=== PATIENT | female | born 1985 | race Caucasian/White ===

== ENCOUNTER 2020-09-28 20:34 | Emergency (ER) | payer MEDICAID, SELFPAY ==
[2020-09-28 20:48] VITALS: BP 171/100; PULSE 91; RESP 17; TEMP 36.8; O2SAT 96; BMI 42.9
--- NOTE | 2020-09-28 20:49 | XRR_ITS ---
PROCEDURE INFORMATION: Exam: XR Chest Exam date and time: 09/28/2020 8:49 PM Age: 35 years old Clinical indication: Sternal or substernal pain; Additional info: Cp TECHNIQUE: Imaging protocol: XR of the chest. Views: 1 view. COMPARISON: No relevant prior studies available. FINDINGS: Lungs: Unremarkable. No consolidation. Pleural spaces: Unremarkable. No pleural effusion. No pneumothorax. Heart/Mediastinum: Unremarkable. No cardiomegaly. Bones/joints: Unremarkable. XR/XR chest 1V portable [id number] IMPRESSION: No acute findings.
--- NOTE | 2020-09-28 20:49 | ECG_ITS ---
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 Measurements Intervals [place] Rate: 72 P: 65 ME: 140 QRS: 14 QRSD: 92 T: 38 QT: 411 QTc: 452 Interpretive Statements SINUS RHYTHM WITH SINUS ARRHYTHMIA No previous ECG available for comparison Electronically Signed On 09-29-2020 19:27:13 CDT by Ann Pope M.D. [id number]
--- NOTE | 2020-09-28 21:15 | W.ED.HA ---
HPI - Headache General: Chief Complaint: Headache Stated Complaint: H/A, DIFF BREATHING, CP, DIZZY, COVID VACC 2 DAYS Time Seen by Provider: 09/28/20 20:48 Source: patient Mode of arrival: ambulatory Limitations: no limitations History of Present Illness: HPI Narrative: 35-year-old female states she had a migraine headache of last 2 days. States she has history of migraines. She states she is also having chest pain. States that sharp in nature and also has a severe sunburn from mowing yesterday. She is unsure if the pain is from her sunburn but is over sunburn and worse with touch. Denies any Associated symptoms: Reports chest pain; Deny fever(s), nausea, rash or vomiting Review of Systems Const: Denies: fever(s), chills, body aches or change in appetite Eyes: Denies: blurry vision or eye discomfort ENMT: Denies: throat pain or dental pain Card: Reports: chest pain Resp: Denies: dyspnea GI: Denies: abdominal pain, nausea, vomiting or diarrhea : Denies: dysuria Musc: Denies: neck pain or back pain Skin/Breast: Denies: rash Neuro: Reports: headache(s) Psych: Denies: depression Shar/Lymph: Denies: easy bruising All/Imm: Denies: urticaria Physical Exam Const: COMMON NORMALS: no acute distress, patient oriented x3 and healthy appearing HENMT: COMMON NORMALS: normocephalic and atraumatic HEAD & SCALP: normocephalic and atraumatic Eye: COMMON NORMALS: Equal, round and reactive pupils present and EOMs intact bilaterally PUPIL: Yes Equal, round and reactive pupils present Neck/C-Spine: COMMON NORMALS: full ROM and supple Chest: COMMONS NORMALS: normal inspection of the chest and normal palpation of entire chest wall Resp: COMMON NORMALS: normal respiratory effort, No retractions, No use of accessory muscles and clear to auscultation bilaterally AUSCULTATION: clear to auscultation bilaterally Cardio: COMMON NORMALS: regular rate, regular rhythm and No murmurs present (Cardio) RATE: regular rate RHYTHM: regular rhythm GI: COMMON NORMALS: Normal to inspection, nondistended, normoactive bowel sounds present, Soft to palpation, non-tender and no masses PALPATION: Yes Soft to palpation Extremity: COMMON NORMALS: normal to inspection and full ROM Neuro: COMMON NORMALS: patient oriented x3, moves all extremities and no focal motor deficits Psych: COMMON NORMALS: mental status grossly normal, Normal thought process present and cooperative THOUGHT PROCESS: Normal thought process present Skin: COMMON NORMALS: no wounds NARRATIVE SKIN EXAM: sunburn to chest shoulders and arms Course Vital Signs: Vital signs: Vital Signs Temperature 98.3 F 09/28/20 20:48 Pulse Rate 98 09/28/20 23:34 Respiratory Rate 18 09/28/20 23:34 Blood Pressure 134/113 09/28/20 23:34 Pulse Oximetry 97 09/28/20 23:34 MDM - Headache MDM Narrative: Medical decision making narrative: Maribell presents here with a headache likely migraine headache. She also has a sunburn and chest pain. CT shows no pulmonary embolism and troponins are negative. She feels much improved after Reglan and Benadryl and her headache is resolved. She is stable for discharge is return if worsening. Lab Data: Labs: Lab Results 09/28/20 09/28/20 09/28/20 Range/Units 21:10 21:10 21:10 WBC 6.2 (4.0-10.0) 10^3/ uL RBC 4.97 (4.1-5.3) 10^6/u L Hgb 14.0 (11.5-15.3) g/dL Hct 43.8 (37.0-47.0) % MCV 88.1 (81-99) fL MCH 28.2 (28.0-34.0) pg MCHC 32.0 (30.0-36.0) g/dL RDW 13.5 (12.1-15.1) % Plt Count 287 (130-400) 10^3/c mm MPV 9.6 (7.4-10.4) fL Neut % (Auto) 62.7 % Lymph % (Auto) 25.7 % Allen % (Auto) 9.7 % Eos % (Auto) 1.6 % Baso % (Auto) 0.3 % Neut # (Auto) 3.88 (1.8-7.7) 10^3/u L Lymph # (Auto) 1.6 (0.8-4.8) 10^3/u L Allen # (Auto) 0.6 (0.2-0.9) 10^3/u L Eos # (Auto) 0.1 (0.0-0.8) 10^3/u L Baso # (Auto) 0.0 (0.0-0.1) 10^3/u L Nucleated RBC % (a uto) 0 % Nucleated RBCs # 0.0 /100WBC D-Dimer 0.60 H (0-0.59) ug/mIFE U Sodium 137 (136-145) mmol/L Potassium 3.7 (3.5-5.1) mmol/L Chloride 102 (98-107) mmol/L Carbon Dioxide 27 (22-29) mmol/L Anion Gap 11.7 (5-19) BUN 15 (6-20) mg/dL Creatinine 0.7 (0.5-0.9) mg/dL GFR Calculation 94.2 (90-130) mL/min Glucose 95 (65-115) mg/dL Calculated Osmolal ity 285 (285-295) mOsm/k g Calcium 8.6 (8.5-10.5) mg/dL Total Bilirubin 0.2 (0.15-1.2) mg/dL AST 11 (0-32) U/L ALT 10 (0-33) U/L Alkaline Phosphata se 123 H (35-105) IU/L Troponin T Baselin e (0-10) ng/L Troponin T 120 Min [place] (0-10) ng/L Delta Troponin T (0-10) ABS# NT-Pro-B Natriuret Pep 251 H (0-125) pg/mL Total Protein 6.3 L (6.6-8.7) g/dL Albumin 3.8 (3.5-5.2) g/dL Globulin 2.5 (1.3-4.6) g/dL 09/28/20 09/28/20 Range/Units 21:10 23:00 WBC (4.0-10.0) 10^3/ uL RBC (4.1-5.3) 10^6/u L Hgb (11.5-15.3) g/dL Hct (37.0-47.0) % MCV (81-99) fL MCH (28.0-34.0) pg MCHC (30.0-36.0) g/dL RDW (12.1-15.1) % Plt Count (130-400) 10^3/c mm MPV (7.4-10.4) fL Neut % (Auto) % Lymph % (Auto) % Allen % (Auto) % Eos % (Auto) % Baso % (Auto) % Neut # (Auto) (1.8-7.7) 10^3/u L Lymph # (Auto) (0.8-4.8) 10^3/u L Allen # (Auto) (0.2-0.9) 10^3/u L Eos # (Auto) (0.0-0.8) 10^3/u L Baso # (Auto) (0.0-0.1) 10^3/u L Nucleated RBC % (a uto) % Nucleated RBCs # /100WBC D-Dimer (0-0.59) ug/mIFE U Sodium (136-145) mmol/L Potassium (3.5-5.1) mmol/L Chloride (98-107) mmol/L Carbon Dioxide (22-29) mmol/L Anion Gap (5-19) BUN (6-20) mg/dL Creatinine (0.5-0.9) mg/dL GFR Calculation (90-130) mL/min Glucose (65-115) mg/dL Calculated Osmolal ity (285-295) mOsm/k g Calcium (8.5-10.5) mg/dL Total Bilirubin (0.15-1.2) mg/dL AST (0-32) U/L ALT (0-33) U/L Alkaline Phosphata se (35-105) IU/L Troponin T Baselin e 11 H (0-10) ng/L Troponin T 120 Min [place] 11.13 H (0-10) ng/L Delta Troponin T 0.13 (0-10) ABS# NT-Pro-B Natriuret Pep (0-125) pg/mL Total Protein (6.6-8.7) g/dL Albumin (3.5-5.2) g/dL Globulin (1.3-4.6) g/dL Imaging Data^: CXR: Attestation: I personally reviewed and interpreted this imaging study as follows: Radiologist's impression: [facility] [address] XRay Report Signed Patient: Maribell Duncan Unit #: [id number] : 1985 Age/Sex: 35 / F ADM Date: 09/28/20 Loc: ER Room/Bed: Attending Dr: Ordering Provider/Ordering MD: Jovita Ocasio MD Date of Service: 09/28/20 Procedure(s): XR chest 1V portable [id number] Accession Number(s): [id number] Report Number: [id number] PROCEDURE INFORMATION: Exam: XR Chest Exam date and time: 09/28/2020 8:49 PM Age: 35 years old Clinical indication: Sternal or substernal pain; Additional info: Cp TECHNIQUE: Imaging protocol: XR of the chest. Views: 1 view. COMPARISON: No relevant prior studies available. FINDINGS: Lungs: Unremarkable. No consolidation. Pleural spaces: Unremarkable. No pleural effusion. No pneumothorax. Heart/Mediastinum: Unremarkable. No cardiomegaly. Bones/joints: Unremarkable. XR/XR chest 1V portable [id number] IMPRESSION: No acute findings. Dictated By: Bruce Landa MD Signed By: Bruce Landa MD Signed Date/Time: 09/28/202126 DD/ 25 EKG Data^: EKG 1: Attestation: I personally reviewed and interpreted this EKG as follows: EKG interpretation date: 09/28/20 EKG interpretation time: 21:33 Interpretation: nsr hr [address] or t wave abnormalities qrs 92 qtc 436 Discharge Plan Discharge Patient Disposition: Home Clinical Impression: Sunburn Headache Qualifiers: Headache type: unspecified Headache chronicity pattern: unspecified pattern Intractability: not intractable Qualified Code(s): R51.9 - Headache, unspecified Chest pain Qualifiers: Chest pain type: unspecified Qualified Code(s): R07.9 - Chest pain, unspecified Condition: Stable Prescriptions: No Action omeprazole 40 mg capsule,delayed release(DR/EC) 0 mg PO DAILY RF: 0 wejjqgjylq-[id number]-hlkx 50-325-40 mg tablet 1 tab PO Q4H PRN (Reason: Migraine Headache) RF: 0 gabapentin 300 mg capsule 300 mg PO TID RF: 0 Discharge Orders: Discharge ED (Routine); Ordered 09/28/20 Ordered By: Jovita Ocasio Referrals: Mikey Morrow MD [Primary Care Provider] - 1-3 days Discharge Diet: Advance as tolerated Discharge Activity: Resume usual activity Patient Instructions: Headache, Chest Pain (ED) Coding Level of Care Code ED Rn Assessment for Chg Fwd Exam Comprehensive
[2020-09-28 21:16] LABS: Basophils % 0.3 %; Eosinophils # 0.1 10^3/uL (0.0-0.8); Eosinophils % 1.6 %; Hematocrit 43.8 % (37.0-47.0); Lymphocytes # 1.6 10^3/uL (0.8-4.8); Lymphocytes % 25.7 %; Mean Corpuscular Hemoglobin 28.2 pg (28.0-34.0); Mean Corpuscular Volume 88.1 fL (81-99); Mean Platelet Volume 9.6 fL (7.4-10.4); Monocytes # 0.6 10^3/uL (0.2-0.9); Monocytes % 9.7 %; Neutrophils # 3.88 10^3/uL (1.8-7.7); Neutrophils % 62.7 %; Nucleated Red Blood Cells % 0 %; Platelet Count 287 10^3/cmm (130-400); Red Blood Count 4.97 10^6/uL (4.1-5.3); Red Cell Distribution Width 13.5 % (12.1-15.1); White Blood Count 6.2 10^3/uL (4.0-10.0)
[2020-09-28] MEDS: diphenhydrAMINE 50 mg/mL SDV 1mL IVP (21:21)
[2020-09-28] MEDS: metoclopramide 5 mg/mL SDV 2 mL 10 MG IVP (21:22)
[2020-09-28 21:28] VITALS: BP 173/113; PULSE 83; RESP 18; O2SAT 98
[2020-09-28 21:33] LABS: Troponin(5th) Baseline 11 ng/L (0-10)
--- NOTE | 2020-09-28 21:35 | CTR_ITS ---
PROCEDURE INFORMATION: Exam: CTA Chest With Contrast Exam date and time: 09/28/2020 9:35 PM Age: 35 years old Clinical indication: Abnormal findings; Abnormal diagnostic tests; Elevated d-dimer; Cough and shortness of breath; Patient HX: Cough/sob. Elevated ddimer. TECHNIQUE: Imaging protocol: Computed tomographic angiography of the chest with contrast. 3D rendering (Not supervised by radiologist): MIP and/or 3D reconstructed images were created by the technologist. Radiation optimization: All CT scans at this facility use at least one of these dose optimization techniques: automated exposure control; mA and/or kV adjustment per patient size (includes targeted exams where dose is matched to clinical indication); or iterative reconstruction. Contrast material: OMNI 350; Contrast volume: 73 ml; Contrast route: INTRAVENOUS (IV); COMPARISON: CR (CHEST, ) 09/28/2020 8:49 PM RADIATION DOSE METRICS: Total DLP (mGy-cm): 850.29 FINDINGS: Pulmonary arteries: The pulmonary arteries are adequately opacified for evaluation to the subsegmental level. There is no filling defect to suggest embolism. Aorta: The aorta is unremarkable. There is no aneurysm. Lungs: Lungs are clear. Pleural spaces: There is no pleural effusion or pneumothorax. Heart: Heart size is normal. There is no pericardial effusion. Lymph nodes: There is no mediastinal or hilar lymphadenopathy. Bones/joints: Bones are unremarkable. Soft tissues: The extrathoracic soft tissues are unremarkable. Other findings: Visible structures in the upper abdomen are unremarkable. CT/CT angio chest PE protcl [id number] IMPRESSION: No pulmonary embolism. Radiation Dose CTDIVOL = (mGy): DLP = 850.29 (mGy-cm)
[2020-09-28 21:55] LABS: Alanine Aminotransferase 10 U/L (0-33); Albumin Level 3.8 g/dL (3.5-5.2); Alkaline Phosphatase 123 IU/L (35-105); Anion Gap 11.7 (5-19); Aspartate Amino Transferase 11 U/L (0-32); Blood Urea Nitrogen 15 mg/dL (6-20); Calcium 8.6 mg/dL (8.5-10.5); Carbon Dioxide 27 mmol/L (22-29); Chloride 102 mmol/L (98-107); Globulin 2.5 g/dL (1.3-4.6); Glomerular Filtration Rate 94.2 mL/min (90-130); Glucose 95 mg/dL (65-115); NT Pro B Type Natriuretic Pept 251 pg/mL (0-125); Osmolality Calculated 285 mOsm/kg (285-295); Potassium 3.7 mmol/L (3.5-5.1); Sodium 137 mmol/L (136-145); Total Bilirubin 0.2 mg/dL (0.15-1.2); Total Protein 6.3 g/dL (6.6-8.7)
[2020-09-28] MEDS: iohexol 350 mg/mL 100 mL Btl IV (22:02)
[2020-09-28 22:21] VITALS: PULSE 86; O2SAT 98
--- NOTE | 2020-09-28 22:49 | ECG_ITS ---
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1985 Requested By: Jovita Ocasio Order Number: [id number] Reading MD: Measurements Intervals [place] Rate: 72 P: 67 VA: 181 QRS: -3 QRSD: 118 T: 40 QT: 431 QTc: 472 Interpretive Statements SINUS RHYTHM WITH SINUS ARRHYTHMIA LOW QRS VOLTAGE IN PRECORDIAL LEADS [QRS DEFLECTION < 1.0 mV IN CHEST LEADS] POSSIBLE RIGHT VENTRICULAR CONDUCTION DELAY [RSR (QR) IN V1/V2] Compared to ECG 08/27/2020 17:03:45 Low QRS voltage now present Ventricular premature complex(es) no longer present [id number]
[2020-09-28 23:26] LABS: Troponin 5 2HR 11.13 ng/L (0-10); Troponin 5 2HR Delta 0.13 ABS# (0-10)
[2020-09-28 23:34] VITALS: BP 134/113; PULSE 98; RESP 18; O2SAT 97
[2020-09-28 23:35] VITALS: BP 134/113; PULSE 89; RESP 18; O2SAT 96
== END 2020-09-28 23:39 | disposition home or self-care (01) ==
PROVIDERS: Emergency Provider Emergency Medicine; PCP Family Medicine
DX: R51.9 Headache, unspecified (principal); R07.9 Chest pain, unspecified; L55.9 Sunburn, unspecified
CPT/HCPCS: 71045; 71275; 80053; 83880; 84484; 85025; 85378; 93005; 96374; 96375; 99284; J1200; J2765; Q9967

== ENCOUNTER 2021-01-10 03:02 | Emergency (ER) | payer MEDICAID, SELFPAY ==
[2021-01-10] VITALS (8 sets, daily range): BP systolic 132–191; BP diastolic 84–120; PULSE 84–98; RESP 18–24; TEMP 36.8; O2SAT 97–99; BMI 39.4
--- NOTE | 2021-01-10 03:16 | CTR_ITS ---
PROCEDURE INFORMATION: Exam: CT Abdomen And Pelvis With Contrast Exam date and time: 01/10/2021 3:16 AM Age: 35 years old Clinical indication: Nausea and vomiting; Abdominal pain; Patient HX: Llq/back pain. N/v. TECHNIQUE: Imaging protocol: Computed tomography of the abdomen and pelvis with contrast. Radiation optimization: All CT scans at this facility use at least one of these dose optimization techniques: automated exposure control; mA and/or kV adjustment per patient size (includes targeted exams where dose is matched to clinical indication); or iterative reconstruction. Contrast material: OMNI 300; Contrast volume: 95 ml; Contrast route: INTRAVENOUS (IV); COMPARISON: CT angio chest PE protcl [id number] 09/28/2020 10:01 PM RADIATION DOSE METRICS: Total DLP (mGy-cm): 1625.18 FINDINGS: Liver: Normal. No mass. Gallbladder and bile ducts: Normal. No calcified stones. No ductal dilation. Pancreas: Normal. No ductal dilation. Spleen: Normal. No splenomegaly. Adrenal glands: Normal. No mass. Kidneys and ureters: 4 mm left ureteral stone at the level of L4-L5 with mild left hydronephrosis. Stomach and bowel: Unremarkable. No obstruction. No mucosal thickening. Appendix: No evidence of appendicitis. Intraperitoneal space: Unremarkable. No free air. No significant fluid collection. Vasculature: Unremarkable. No abdominal aortic aneurysm. Lymph nodes: Unremarkable. No enlarged lymph nodes. Urinary bladder: Unremarkable as visualized. Reproductive: Unremarkable as visualized. Bones/joints: Unremarkable. No acute fracture. Soft tissues: Unremarkable. CT/CT abdomen pelvis w con* [id number] IMPRESSION: 4 mm left ureteral stone at the level of L4-L5 with mild left hydronephrosis. Radiation Dose CTDIVOL = (mGy): DLP = 1625.18 (mGy-cm)
--- NOTE | 2021-01-10 03:28 | ED_ITS ---
Documented by User: Jovita Ocasio MD 01/10/21 19:00 HPI - Abdominal Pain General: Chief Complaint: Abdominal Pain Stated Complaint: adb pain, back paib Time Seen by Provider: 01/10/21 03:06 Source: patient Mode of arrival: ambulatory Limitations: no limitations History of Present Illness: HPI narrative: 35-year-old female who states she had sudden onset of left lower abdominal pain roughly 4 hours ago. States the pain is sharp in nature rates it a 9 out of 10 currently she has had some nausea the pain no vomiting. States she just recently got off her menstruation. She does have a history of ectopic but does not believe she is . No history of kidney stones. Denies any fevers or diarrhea. Denies any worsening improving factors. Associated Symptoms: Denies chills, dysuria and fever(s) Review of Systems Const: Denies: fever(s), chills, body aches or change in appetite Eyes: Denies: blurry vision or eye discomfort ENMT: Denies: throat pain or dental pain Card: Denies: chest pain Resp: Denies: dyspnea GI: Reports: abdominal pain : Denies: dysuria Musc: Denies: neck pain or back pain Skin/Breast: Denies: rash Neuro: Denies: headache(s) Psych: Denies: depression Shar/Lymph: Denies: easy bruising All/Imm: Denies: urticaria Physical Exam Const: COMMON NORMALS: no acute distress, patient oriented x3 and healthy appearing HENMT: COMMON NORMALS: normocephalic and atraumatic HEAD & SCALP: normocephalic and atraumatic Eye: COMMON NORMALS: Equal, round and reactive pupils present and EOMs intact bilaterally PUPIL: Yes Equal, round and reactive pupils present Neck/C-Spine: COMMON NORMALS: full ROM and supple Chest: COMMONS NORMALS: normal inspection of the chest and normal palpation of entire chest wall Resp: COMMON NORMALS: normal respiratory effort, No retractions, No use of accessory muscles and clear to auscultation bilaterally AUSCULTATION: clear to auscultation bilaterally Cardio: COMMON NORMALS: regular rate, regular rhythm and No murmurs present (Cardio) RATE: regular rate RHYTHM: regular rhythm GI: COMMON NORMALS: Normal to inspection, nondistended, normoactive bowel sounds present, Soft to palpation and no masses PALPATION: Yes Soft to palpation and Yes Tenderness to palpation present (GI) Details: LLQ Extremity: COMMON NORMALS: normal to inspection and full ROM Neuro: COMMON NORMALS: patient oriented x3, moves all extremities and no focal motor deficits Psych: COMMON NORMALS: mental status grossly normal, Normal thought process present and cooperative THOUGHT PROCESS: Normal thought process present Skin: COMMON NORMALS: no rashes or lesions noted and no wounds GENERAL SKIN EXAM: no rashes or lesions noted Course Vital Signs: Vital signs: Vital Signs Temperature 98.2 F 01/10/21 03:07 Pulse Rate 88 01/10/21 06:36 Respiratory Rate 18 01/10/21 06:36 Blood Pressure 132/84 01/10/21 06:36 Pulse Oximetry 98 01/10/21 06:36 MDM - Abdominal Pain Lab Data: Labs: Lab Results 01/10/21 01/10/21 01/10/21 03:25 03:25 03:34 WBC 9.4 10^3/uL 10^3/ uL (4.0-10.0) RBC 5.04 10^6/uL 10^6 /uL (4.1-5.3) Hgb 14.3 g/dL g/dL (11.5-15.3) Hct 44.1 % % (37.0-47.0) MCV 87.5 fl fl (81-99) MCH 28.4 pg pg (28.0-34.0) MCHC 32.4 g/dL g/dL (30.0-36.0) RDW 12.7 % % (12.1-15.1) Plt Count 323 10^3/cmm 10^3 /cmm (130-400) MPV 9.4 fL fL (7.4-10.4) Neut % (Auto) 60.0 % % Lymph % (Auto) 29.9 % % [place] % (Auto) 8.7 % % Eos % (Auto) 0.7 % % Baso % (Auto) 0.4 % % Neut # (Auto) 5.64 10^3/uL 10^3 /uL (1.8-7.7) Lymph # (Auto) 2.8 10^3/uL 10^3/ uL (0.8-4.8) [place] # (Auto) 0.8 10^3/uL 10^3/ uL (0.2-0.9) Eos # (Auto) 0.1 10^3/uL 10^3/ uL (0.0-0.8) Baso # (Auto) 0.0 10^3/uL 10^3/ uL (0.0-0.1) Nucleated RBC % (a uto) 0 % % Nucleated RBCs # 0.0 /100WBC /100W BC Sodium Potassium Chloride Carbon Dioxide Anion Gap BUN Creatinine GFR Calculation Glucose Calculated Osmolal ity Calcium Total Bilirubin AST ALT Alkaline Phosphata se Total Protein Albumin Globulin Lipase HCG, Qual Negative (Negative) Urine Color Dark yellow (Yellow) Urine Appearance Cloudy (CLEAR) Urine pH 5 (5-7) Ur Specific Gravit y 1.025 (1.005-1.030) Urine Protein Trace (Negative) Urine Glucose (UA) Norm (Normal) Urine Ketones Negative (Negative) Urine Blood 3+ H (Negative) Urine Nitrate Negative (Negative) Urine Bilirubin 1+ H (Negative) Urine Urobilinogen 1 mg/dL H mg/dL (Negative) Ur Leukocyte Analy ase Negative (Negative) Urine RBC Too numerous to c nt /hpf H /hpf (0-2) Urine WBC 0-4 /hpf H /hpf (0-5) Ur Squamous Epith Cells Rare /hpf /hpf (0-5) Amorphous Sediment Not Reportable Urine Bacteria 1+ /hpf H /hpf (NONE) 01/10/21 01/10/21 03:34 03:34 WBC RBC Hgb Hct MCV MCH MCHC RDW Plt Count MPV Neut % (Auto) Lymph % (Auto) [place] % (Auto) Eos % (Auto) Baso % (Auto) Neut # (Auto) Lymph # (Auto) [place] # (Auto) Eos # (Auto) Baso # (Auto) Nucleated RBC % (a uto) Nucleated RBCs # Sodium 139 mmol/L mmol/L (136-145) Potassium 3.6 mmol/L mmol/L (3.5-5.1) Chloride 104 mmol/L mmol/L (98-107) Carbon Dioxide 26 mmol/L mmol/L (22-29) Anion Gap 12.6 (5-19) BUN 19 mg/dL mg/dL (6-20) Creatinine 0.6 mg/dL mg/dL (0.5-0.9) GFR Calculation 112.5 mL/min mL/m in (90-130) Glucose 103 mg/dL mg/dL (65-115) Calculated Osmolal ity 291 mOsm/kg mOsm/ kg (285-295) Calcium 9.1 mg/dL mg/dL (8.5-10.5) Total Bilirubin 0.2 mg/dL mg/dL (0.15-1.2) AST 12 U/L U/L (0-32) ALT 12 U/L U/L (0-33) Alkaline Phosphata se 99 IU/L IU/L (35-105) Total Protein 7.5 g/dL g/dL (6.6-8.7) Albumin 4.0 g/dL g/dL (3.5-5.2) Globulin 3.5 g/dL g/dL (1.3-4.6) Lipase 11 U/L L U/L (13-60) HCG, Qual Negative (Negative) Urine Color Urine Appearance Urine pH Ur Specific Gravit y Urine Protein Urine Glucose (UA) Urine Ketones Urine Blood Urine Nitrate Urine Bilirubin Urine Urobilinogen Ur Leukocyte Analy ase Urine RBC Urine WBC Ur Squamous Epith Cells Amorphous Sediment Urine Bacteria Discharge Plan Discharge Patient Disposition: Home Clinical Impression: Kidney stone Condition: Stable Prescriptions: New hydrocodone-acetaminophen 5-325 mg tablet 1 tab PO Q6H PRN (Reason: pain) Qty: 14 RF: 0 ondansetron 4 mg tablet,disintegrating 4 mg PO Q6H PRN (Reason: nausea and vomiting) Qty: 14 RF: 0 Flomax 0.4 mg capsule 0.4 mg PO DAILY Qty: 5 RF: 0 No Action omeprazole 40 mg capsule,delayed release(DR/EC) 0 mg PO DAILY RF: 0 ifefrnimsg-qpnscjbgbgbbp-jwug 50-325-40 mg tablet 1 tab PO Q4H PRN (Reason: Migraine Headache) RF: 0 gabapentin 300 mg capsule 300 mg PO TID RF: 0 Discharge Orders: Discharge ED (Routine); Ordered 01/10/21 Ordered By: Jovita Ocasio Referrals: Mikey Morrow MD [Primary Care Provider] - Barry Blunt MD [Physician] - 1-3 days Discharge Diet: Advance as tolerated Discharge Activity: Resume usual activity Patient Instructions: Kidney Stones (ED), Opioid Safety Coding Level of Care Code ED Dump Grounds Checker for Chg Fwd Exam Comprehensive Documented by User: Syd Sullivan DO 01/10/21 06:22 HPI - Abdominal Pain General: Chief Complaint: Abdominal Pain Stated Complaint: adb pain, back paib Time Seen by Provider: 01/10/21 03:06 Course Vital Signs: Vital signs: Vital Signs Temperature 98.2 F 01/10/21 03:07 Pulse Rate 88 01/10/21 06:36 Respiratory Rate 18 01/10/21 06:36 Blood Pressure 132/84 01/10/21 06:36 Pulse Oximetry 98 01/10/21 06:36 MDM - Abdominal Pain MDM Narrative: Medical decision making narrative: CT renal protocol shows a 4 mm left ureteral stone with mild left hydronephrosis. Within report of the mention is made of possible pyelonephritis. Patient's white count is normal urine does not show any signs of infection. Pain is controlled at this time. We will go ahead and discharge patient home with pain control and referral to Dr. Blunt. Lab Data: Labs: Lab Results 01/10/21 01/10/21 01/10/21 03:25 03:25 03:34 WBC 9.4 10^3/uL 10^3/ uL (4.0-10.0) RBC 5.04 10^6/uL 10^6 /uL (4.1-5.3) Hgb 14.3 g/dL g/dL (11.5-15.3) Hct 44.1 % % (37.0-47.0) MCV 87.5 fl fl (81-99) MCH 28.4 pg pg (28.0-34.0) MCHC 32.4 g/dL g/dL (30.0-36.0) RDW 12.7 % % (12.1-15.1) Plt Count 323 10^3/cmm 10^3 /cmm (130-400) MPV 9.4 fL fL (7.4-10.4) Neut % (Auto) 60.0 % % Lymph % (Auto) 29.9 % % [place] % (Auto) 8.7 % % Eos % (Auto) 0.7 % % Baso % (Auto) 0.4 % % Neut # (Auto) 5.64 10^3/uL 10^3 /uL (1.8-7.7) Lymph # (Auto) 2.8 10^3/uL 10^3/ uL (0.8-4.8) [place] # (Auto) 0.8 10^3/uL 10^3/ uL (0.2-0.9) Eos # (Auto) 0.1 10^3/uL 10^3/ uL (0.0-0.8) Baso # (Auto) 0.0 10^3/uL 10^3/ uL (0.0-0.1) Nucleated RBC % (a uto) 0 % % Nucleated RBCs # 0.0 /100WBC /100W BC Sodium Potassium Chloride Carbon Dioxide Anion Gap BUN Creatinine GFR Calculation Glucose Calculated Osmolal ity Calcium Total Bilirubin AST ALT Alkaline Phosphata se Total Protein Albumin Globulin Lipase HCG, Qual Negative (Negative) Urine Color Dark yellow (Yellow) Urine Appearance Cloudy (CLEAR) Urine pH 5 (5-7) Ur Specific Gravit y 1.025 (1.005-1.030) Urine Protein Trace (Negative) Urine Glucose (UA) Norm (Normal) Urine Ketones Negative (Negative) Urine Blood 3+ H (Negative) Urine Nitrate Negative (Negative) Urine Bilirubin 1+ H (Negative) Urine Urobilinogen 1 mg/dL H mg/dL (Negative) Ur Leukocyte Analy ase Negative (Negative) Urine RBC Too numerous to c nt /hpf H /hpf (0-2) Urine WBC 0-4 /hpf H /hpf (0-5) Ur Squamous Epith Cells Rare /hpf /hpf (0-5) Amorphous Sediment Not Reportable Urine Bacteria 1+ /hpf H /hpf (NONE) 01/10/21 01/10/21 03:34 03:34 WBC RBC Hgb Hct MCV MCH MCHC RDW Plt Count MPV Neut % (Auto) Lymph % (Auto) [place] % (Auto) Eos % (Auto) Baso % (Auto) Neut # (Auto) Lymph # (Auto) [place] # (Auto) Eos # (Auto) Baso # (Auto) Nucleated RBC % (a uto) Nucleated RBCs # Sodium 139 mmol/L mmol/L (136-145) Potassium 3.6 mmol/L mmol/L (3.5-5.1) Chloride 104 mmol/L mmol/L (98-107) Carbon Dioxide 26 mmol/L mmol/L (22-29) Anion Gap 12.6 (5-19) BUN 19 mg/dL mg/dL (6-20) Creatinine 0.6 mg/dL mg/dL (0.5-0.9) GFR Calculation 112.5 mL/min mL/m in (90-130) Glucose 103 mg/dL mg/dL (65-115) Calculated Osmolal ity 291 mOsm/kg mOsm/ kg (285-295) Calcium 9.1 mg/dL mg/dL (8.5-10.5) Total Bilirubin 0.2 mg/dL mg/dL (0.15-1.2) AST 12 U/L U/L (0-32) ALT 12 U/L U/L (0-33) Alkaline Phosphata se 99 IU/L IU/L (35-105) Total Protein 7.5 g/dL g/dL (6.6-8.7) Albumin 4.0 g/dL g/dL (3.5-5.2) Globulin 3.5 g/dL g/dL (1.3-4.6) Lipase 11 U/L L U/L (13-60) HCG, Qual Negative (Negative) Urine Color Urine Appearance Urine pH Ur Specific Gravit y Urine Protein Urine Glucose (UA) Urine Ketones Urine Blood Urine Nitrate Urine Bilirubin Urine Urobilinogen Ur Leukocyte Analy ase Urine RBC Urine WBC Ur Squamous Epith Cells Amorphous Sediment Urine Bacteria Discharge Plan Discharge Patient Disposition: Home Clinical Impression: Kidney stone Condition: Stable Prescriptions: New hydrocodone-acetaminophen 5-325 mg tablet 1 tab PO Q6H PRN (Reason: pain) Qty: 14 RF: 0 ondansetron 4 mg tablet,disintegrating 4 mg PO Q6H PRN (Reason: nausea and vomiting) Qty: 14 RF: 0 Flomax 0.4 mg capsule 0.4 mg PO DAILY Qty: 5 RF: 0 No Action omeprazole 40 mg capsule,delayed release(DR/EC) 0 mg PO DAILY RF: 0 llimgjhyoy-dbqodggmqjmkd-ktyn 50-325-40 mg tablet 1 tab PO Q4H PRN (Reason: Migraine Headache) RF: 0 gabapentin 300 mg capsule 300 mg PO TID RF: 0 Discharge Orders: Discharge ED (Routine); Ordered 01/10/21 Ordered By: Jovita Ocasio Referrals: Mikey Morrow MD [Primary Care Provider] - Barry Blunt MD [Physician] - 1-3 days Discharge Diet: Advance as tolerated Discharge Activity: Resume usual activity Patient Instructions: Kidney Stones (ED), Opioid Safety Coding Level of Care Code ED Dump Grounds Checker for Chg Fwd Exam Comprehensive
[2021-01-10] MEDS: sodium chloride 0.9% 1,000 ML 999 ML IV (03:35)
[2021-01-10] MEDS: ondansetron 2 mg/ML SDV 2 mL 4 MG IVP (03:36)
[2021-01-10] MEDS: morphine 4 mg/mL SDV 1 mL IVP (03:36)
[2021-01-10] MEDS: HYDROmorphone 1 mg/mL INJ 1 mL IVP ×2 (03:41→04:29)
[2021-01-10 03:42] LABS: Basophils % 0.4 %; Eosinophils # 0.1 10^3/uL (0.0-0.8); Eosinophils % 0.7 %; Hematocrit 44.1 % (37.0-47.0); Hemoglobin 14.3 g/dL (11.5-15.3); Lymphocytes # 2.8 10^3/uL (0.8-4.8); Lymphocytes % 29.9 %; Mean Corpuscular HGB Conc 32.4 g/dL (30.0-36.0); Mean Corpuscular Hemoglobin 28.4 pg (28.0-34.0); Mean Corpuscular Volume 87.5 fl (81-99); Mean Platelet Volume 9.4 fL (7.4-10.4); Monocytes # 0.8 10^3/uL (0.2-0.9); Monocytes % 8.7 %; Neutrophils # 5.64 10^3/uL (1.8-7.7); Nucleated Red Blood Cells % 0 %; Platelet Count 323 10^3/cmm (130-400); Red Blood Count 5.04 10^6/uL (4.1-5.3); Red Cell Distribution Width 12.7 % (12.1-15.1); White Blood Count 9.4 10^3/uL (4.0-10.0)
[2021-01-10 03:56] LABS: Bilirubin Urine 1+ (Negative); Blood Urine 3+ (Negative); Glucose Urine UA Norm (Normal); HCG Qualitative Urine. Negative (Negative); Ketones Urine Negative (Negative); Nitrate Urine Negative (Negative); Protein Urine Trace (Negative); Specific Gravity, Urine 1.025 (1.005-1.030); Urine Appearance Cloudy (CLEAR); Urine Color Dark Yellow (Yellow); pH Urine 5 (5-7)
[2021-01-10 03:57] LABS: Add Urine Microscopic? YES; Leukocyte Esterase Urine Negative (Negative); Urobilinogen Urine 1 mg/dL (Negative)
[2021-01-10 03:58] LABS: RBC Urine TOO NUMEROUS TO CNT /hpf (0-2); WBC Urine 0-4 /hpf (0-5)
[2021-01-10 03:59] LABS: Add Urine Culture? Yes; Bacteria Urine 1+ /hpf; Squamous Epithelial Cell Urine RARE /hpf (0-5)
[2021-01-10] MEDS: iohexol 300 mg/mL 100 mL Btl IV (04:21)
[2021-01-10 04:25] LABS: Alanine Aminotransferase 12 U/L (0-33); Alkaline Phosphatase 99 IU/L (35-105); Anion Gap 12.6 (5-19); Aspartate Amino Transferase 12 U/L (0-32); Blood Urea Nitrogen 19 mg/dL (6-20); Calcium 9.1 mg/dL (8.5-10.5); Carbon Dioxide 26 mmol/L (22-29); Chloride 104 mmol/L (98-107); Creatinine Clr Calc Pharmacy 151.1316; Globulin 3.5 g/dL (1.3-4.6); Glomerular Filtration Rate 112.5 mL/min (90-130); Glucose 103 mg/dL (65-115); Lipase 11 U/L (13-60); Osmolality Calculated 291 mOsm/kg (285-295); Potassium 3.6 mmol/L (3.5-5.1); Sodium 139 mmol/L (136-145); Total Bilirubin 0.2 mg/dL (0.15-1.2); Total Protein 7.5 g/dL (6.6-8.7)
[2021-01-10 04:27] LABS: HCG, Serum Qual Negative (Negative)
[2021-01-10] MEDS: ketorolac 30 mg/mL INJ 15 MG IVP (05:23)
--- NOTE | 2021-01-11 10:15 | DCPLANNER ---
business manager had message to schedule a follow up appointment for patient with Dr. Blunt. business manager called the office of Dr. Blunt, spoke with Nathalie, gave clinic patients information. business manager was told that patients information would be printed and reviewed. Clinic will call patient with appointment information.
--- NOTE | 2021-01-17 14:22 | DCPLANNER ---
Patient has a follow up appointment scheduled for Thursday, January 18 at 11:[address] Blunt. Clinic will call patient with appointment information.
--- NOTE | 2021-01-24 13:51 | DCPLANNER ---
Patient had a follow up appointment scheduled for 01.18.[address] Blunt - patient did attend appointment.
== END 2021-01-10 06:31 | disposition home or self-care (01) ==
PROVIDERS: Emergency Medicine; Emergency Provider Family Medicine; PCP Family Medicine
DX: N13.2 Hydronephrosis with renal and ureteral calculous obstruction (principal)
CPT/HCPCS: 74177; 80053; 81001; 81025; 83690; 84703; 85025; 87086; 96361; 96374; 96375; 96376; 99284; J1170; J1885; J2270; J2405; J7030; Q9967

== ENCOUNTER 2021-02-11 19:08 | Emergency (ER) | payer MEDICAID, SELFPAY ==
[2021-02-11 19:27] VITALS: BP 156/112; PULSE 71; RESP 18; TEMP 36.8; O2SAT 100; BMI 46.6
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
[2021-02-11] MEDS: OLANZapine 10 mg TABLET 5 MG PO (20:41)
[2021-02-11 20:46] VITALS: BP 142/78; PULSE 78; RESP 16; O2SAT 99
--- NOTE | 2021-02-15 11:21 | DCPLANNER ---
case management manager had message to schedule a follow up appointment for patient with [facility] [place]. case management manager called [facility] [place], spoke with Richelle Bowman, gave clinic patients information. A follow up appointment was scheduled for , February 21, 2021 at 10:30 with Shikha at the [facility]. case management manager called patient and gave patient the appointment information.
--- NOTE | 2021-03-14 13:46 | DCPLANNER ---
Patient had a follow up appointment scheduled with [facility] [place] - patient did attend appointment.
== END 2021-02-11 20:48 | disposition home or self-care (01) ==
PROVIDERS: Emergency Provider Nurse Practitioner Family
DX: F15.94 Other stimulant use, unspecified with stimulant-induced mood disorder (principal); F90.0 Attention-deficit hyperactivity disorder, predominantly inattentive type; F33.9 Major depressive disorder, recurrent, unspecified; Z79.891 Long term (current) use of opiate analgesic; F17.210 Nicotine dependence, cigarettes, uncomplicated
CPT/HCPCS: 99283

== ENCOUNTER 2021-11-12 10:15 | Emergency (ER) | payer MEDICAID, SELFPAY ==
[2021-11-12 10:25] VITALS: BP 158/111; PULSE 90; RESP 18; TEMP 36.6; O2SAT 97; BMI 44.9
--- NOTE | 2021-11-12 10:33 | XR_ITS ---
WS: [id number] Exam: XR foot LT min 3V* [id number] Date/Time of Exam: 11/12/2021 10:33 AM Reason For Exam: injury/trauma No acute fracture or dislocation noted. No soft tissue foreign bodies are identified. Developmentally short first proximal phalanx. Small plantar heel spur. XR/XR foot LT min 3V* [id number] IMPRESSION: 1. No fracture or dislocation noted.
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
== END 2021-11-12 11:44 | disposition home or self-care (01) ==
PROVIDERS: Emergency Provider Physician Assistant
DX: S90.32XA Contusion of left foot, initial encounter (principal); W20.8XXA Other cause of strike by thrown, projected or falling object, initial encounter
CPT/HCPCS: 73630; 99283; E0114

== ENCOUNTER 2021-11-16 18:13 | Inpatient (IN) | payer MEDICAID, SELFPAY ==
[2021-11-16 18:25] VITALS: BP 151/97; PULSE 78; RESP 18; TEMP 36.6; O2SAT 99; BMI 43.4
--- NOTE | 2021-11-16 18:49 | W.ED.PSYCHS ---
HPI - Psych General: Chief Complaint: Psychiatric Symptoms Stated Complaint: SI Time Seen by Provider: 11/16/21 18:35 History of Present Illness: 36-year-old female patient presents to the emergency department stating that she has been using meth. Patient states she has been on a long course of meth use. Patient states she is having suicidal thoughts and wants to . I asked patient if she had a plan when she has these thoughts and she said yes that she would go to her drug dealer and steal drugs so he went off her. Patient denies any other substance abuse than meth. Patient denies any other complaints. Patient states she has not actively taking her meds. Associated symptoms: Reports depression and suicidal ideation Review of Systems Const: Denies: fever(s) or chills Eyes: Denies: change in vision or blurry vision ENMT: Denies: throat pain, uvular edema, enlarged tonsils or odynophagia Card: Denies: chest pain, palpitations or syncope Resp: Denies: dyspnea, productive cough or non-productive cough GI: Denies: abdominal pain, nausea or vomiting : Denies: flank pain, difficulty voiding or dysuria Musc: Denies: neck pain, back pain, extremity pain or extremity swelling Skin/Breast: Denies: rash or pruritus Neuro: Denies: headache(s), numbness in extremities or weakness in extremities Psych: Reports: anxiety, depression, sleeping less and suicidal ideation [facility] ED PFSH: Medical History Left ureteral stone Psychiatric care Female Reproductive History: Date of last menstrual period: 02/02/21 Physical Exam Const: COMMON NORMALS: no acute distress, average body habitus, patient oriented x3, no limitations, healthy appearing, alert and well nourished HENMT: COMMON NORMALS: normocephalic, atraumatic, hearing grossly normal bilaterally, external ears normal, EAC's normal, TM's normal bilaterally, Normal external nose present, Normal nasal mucous membranes and turbinates present, moist oral mucous membranes, oropharynx normal, dentition normal and gingiva normal HEAD & SCALP: normocephalic and atraumatic NOSE: Normal external nose present and Normal nasal mucous membranes and turbinates present EXTERNAL EAR: Yes external ears normal EXTERNAL AUDITORY CANAL: EAC's normal TYMPANIC MEMBRANE: TM's normal bilaterally THROAT: no uvular edema Neck/C-Spine: COMMON NORMALS: full ROM, no lymphadenopathy, supple, no meningeal signs, no JVD, Thyroid normal and No carotid bruits THYROID: Thyroid normal Chest: COMMONS NORMALS: normal inspection of the chest, normal palpation of entire chest wall, normal inspection of the breasts and normal palpation of the breasts Breast/axilla inspection: Yes normal inspection of the breasts BREAST/AXILLA PALPATION: Yes normal palpation of the breasts Resp: COMMON NORMALS: normal respiratory effort, No retractions, No use of accessory muscles, clear to auscultation bilaterally and percussion normal AUSCULTATION: clear to auscultation bilaterally PERCUSSION: percussion normal Cardio: COMMON NORMALS: no JVD, regular rate, regular rhythm, S1 normal heart sound present, S2 normal heart sound present, No gallops present (Cardio), No clicks present (Cardio), No murmurs present (Cardio), No rub (Cardio) and Peripheral pulses 2+ throughout RATE: regular rate RHYTHM: regular rhythm HEART SOUNDS: S1 normal heart sound present and S2 normal heart sound present PERIPHERAL PULSES: Peripheral pulses 2+ throughout GI: COMMON NORMALS: Normal to inspection, nondistended, normoactive bowel sounds present, Soft to palpation, non-tender, No hepatosplenomegaly present, no masses and no bruits PALPATION: Yes Soft to palpation and Yes No hepatosplenomegaly present : COMMON NORMALS: Yes no CVA tenderness BLADDER/KIDNEY EXAM: Yes no CVA tenderness Back/Pelvis: COMMON NORMALS: no CVA tenderness, thoracic and lumbar spine normal to inspection, no thoracic nor lumbar tenderness and thoraco-lumbar ROM normal Extremity: COMMON NORMALS: normal to inspection, full ROM, capillary refill normal, no joint enlargement, no clubbing, cyanosis or edema, no calf tenderness and no pedal edema Neuro: COMMON NORMALS: patient oriented x3 SENSORIUM/ORIENTATION: Yes alert MENINGEAL SIGNS: Yes no meningeal signs Psych: COMMON NORMALS: mental status grossly normal, cooperative, speech normal, activity/motor behavior normal, denies hallucinations and denies homicidal ideation; negative for Normal thought process present, negative for normal affect and negative for denies suicidal ideation SPEECH: Yes normal speech THOUGHT PROCESS: abnormal Course Vital Signs: Vital signs: Vital Signs Temperature 97.9 F 11/16/21 18:25 Pulse Rate 78 11/16/21 18:25 Respiratory Rate 19 H 11/16/21 19:10 Blood Pressure 151/97 11/16/21 18:25 Pulse Oximetry 99 11/16/21 18:25 Oxygen Delivery Me thod 11/16/21 18:25 MDM - Psych Medical Decision Making 36-year-old female patient presents to the emergency department stating that she has been using meth. Patient states she has been on a long course of meth use. Patient states she is having suicidal thoughts and wants to . I asked patient if she had a plan when she has these thoughts and she said yes that she would go to her drug dealer and steal drugs so he went off her. Patient denies any other substance abuse than meth. Patient denies any other complaints. Patient states she has not actively taking her meds. I spoke to Psychiatrist who agrees to admit her at this time. Lab Data : 11/16/21 19:17 11/16/21 19:17 Laboratory Results WBC 9.9 10^3/uL (4.0-10.0) 11/16/21 19:17 RBC 4.57 10^6/uL (4.1-5.3) 11/16/21 19:17 Hgb 13.0 g/dL (11.5-15.3) 11/16/21 19:17 Hct 41.6 % (37.0-47.0) 11/16/21 19:17 MCV 91.0 fl (81-99) 11/16/21 19:17 MCH 28.4 pg (28.0-34.0) 11/16/21 19:17 MCHC 31.3 g/dL (30.0-36.0) 11/16/21 19:17 RDW 14.0 % (12.1-15.1) 11/16/21 19:17 Plt Count 298 10^3/cmm (130-400) 11/16/21 19:17 MPV 9.7 fL (7.4-10.4) 11/16/21 19:17 Neut % (Auto) 63.1 % 11/16/21 19:17 Lymph % (Auto) 28.3 % 11/16/21 19:17 [place] % (Auto) 6.8 % 11/16/21 19:17 Eos % (Auto) 1.1 % 11/16/21 19:17 Baso % (Auto) 0.4 % 11/16/21 19:17 Neut # (Auto) 6.26 10^3/uL (1.8-7.7) 11/16/21 19:17 Lymph # (Auto) 2.8 10^3/uL (0.8-4.8) 11/16/21 19:17 [place] # (Auto) 0.7 10^3/uL (0.2-0.9) 11/16/21 19:17 Eos # (Auto) 0.1 10^3/uL (0.0-0.8) 11/16/21 19:17 Baso # (Auto) 0.0 10^3/uL (0.0-0.1) 11/16/21 19:17 Nucleated RBC % (auto) 0 % 11/16/21 19:17 Nucleated RBCs # 0.0 /100WBC 11/16/21 19:17 Sodium 141 mmol/L (136-145) 11/16/21 19:17 Potassium 3.6 mmol/L (3.5-5.1) 11/16/21 19:17 Chloride 105 mmol/L (98-107) 11/16/21 19:17 Carbon Dioxide 28 mmol/L (22-29) 11/16/21 19:17 Anion Gap 11.6 (5-19) 11/16/21 19:17 BUN 15 mg/dL (6-20) 11/16/21 19:17 Creatinine 0.7 mg/dL (0.5-0.9) 11/16/21 19:17 GFR Calculation 93.6 mL/min (90-130) 11/16/21 19:17 Glucose 86 mg/dL (65-115) 11/16/21 19:17 Calculated Osmolality 292 mOsm/kg (285-295) 11/16/21 19:17 Calcium 9.0 mg/dL (8.5-10.5) 11/16/21 19:17 Total Bilirubin 0.3 mg/dL (0.15-1.2) 11/16/21 19:17 AST 16 U/L (0-32) 11/16/21 19:17 ALT 16 U/L (0-33) 11/16/21 19:17 Alkaline Phosphatase 82 U/L (35-105) 11/16/21 19:17 Total Protein 7.2 g/dL (6.6-8.7) 11/16/21 19:17 Albumin 4.2 g/dL (3.5-5.2) 11/16/21 19:17 Globulin 3.0 g/dL (1.3-4.6) 11/16/21 19:17 TSH 0.12 uIU/mL (0.27-4.20) L 11/16/21 19:17 HCG, Qual Negative (Negative) 11/16/21 18:42 Urine Color Yellow (Yellow) 11/16/21 18:42 Urine Appearance Clear (CLEAR) 11/16/21 18:42 Urine pH 5 (5-7) 11/16/21 18:42 Ur Specific [place] 1.020 (1.005-1.030) 11/16/21 18:42 Urine Protein Neg (Negative) 11/16/21 18:42 Urine Glucose (UA) Norm (Normal) 11/16/21 18:42 Urine Ketones Negative (Negative) 11/16/21 18:42 Urine Blood 3+ (Negative) H 11/16/21 18:42 Urine Nitrate Negative (Negative) 11/16/21 18:42 Urine Bilirubin Neg (Negative) 11/16/21 18:42 Urine Urobilinogen 4 mg/dL (Negative) H 11/16/21 18:42 Ur Leukocyte Esterase Negative (Negative) 11/16/21 18:42 Urine RBC 5-10 /hpf (0-2) H 11/16/21 18:42 Urine WBC 0-4 /hpf (0-5) H 11/16/21 18:42 Ur Squamous Epith Cells 5-10 /hpf (0-5) H 11/16/21 18:42 Calcium Oxalate Crystal 15-25 /hpf H 11/16/21 18:42 Amorphous Sediment Not Reportable 11/16/21 18:42 Urine Bacteria Trace /hpf (NONE) 11/16/21 18:42 Urine Mucus 1+ /hpf 11/16/21 18:42 Salicylates < 0.3 mg/dL (3-10) L 11/16/21 19:17 Urine Opiates Screen Negative ng/mL (Negative) 11/16/21 18:42 Acetaminophen < 5.0 ug/mL (10-30) L 11/16/21 19:17 Ur Barbiturates Screen Negative ng/mL (Negative) 11/16/21 18:42 Ur Phencyclidine Scrn Negative ng/mL (Negative) 11/16/21 18:42 Ur Amphetamines Screen Positive ng/mL (Negative) H 11/16/21 18:42 U Benzodiazepines Scrn Negative ng/mL (Negative) 11/16/21 18:42 Urine Cocaine Screen Negative ng/mL (Negative) 11/16/21 18:42 U Marijuana (THC) Screen Negative ng/mL (Negative) 11/16/21 18:42 Ethyl Alcohol < 10 mg/dL (0-10) 11/16/21 19:17 Discharge Plan Discharge Admit Provider: Deon Loza Condition: Stable Coding Level of Care Code 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
[2021-11-16 19:10] VITALS: RESP 19
[2021-11-16 19:20] LABS: HCG Qualitative Urine. Negative (Negative)
[2021-11-16 19:22] LABS: Basophils % 0.4 %; Eosinophils # 0.1 10^3/uL (0.0-0.8); Eosinophils % 1.1 %; Hematocrit 41.6 % (37.0-47.0); Lymphocytes # 2.8 10^3/uL (0.8-4.8); Lymphocytes % 28.3 %; Mean Corpuscular HGB Conc 31.3 g/dL (30.0-36.0); Mean Corpuscular Hemoglobin 28.4 pg (28.0-34.0); Mean Platelet Volume 9.7 fL (7.4-10.4); Monocytes # 0.7 10^3/uL (0.2-0.9); Monocytes % 6.8 %; Neutrophils # 6.26 10^3/uL (1.8-7.7); Neutrophils % 63.1 %; Nucleated Red Blood Cells % 0 %; Platelet Count 298 10^3/cmm (130-400); Red Blood Count 4.57 10^6/uL (4.1-5.3); White Blood Count 9.9 10^3/uL (4.0-10.0)
[2021-11-16 20:05] LABS: Alanine Aminotransferase 16 U/L (0-33); Albumin Level 4.2 g/dL (3.5-5.2); Alkaline Phosphatase 82 U/L (35-105); Anion Gap 11.6 (5-19); Aspartate Amino Transferase 16 U/L (0-32); Blood Urea Nitrogen 15 mg/dL (6-20); Carbon Dioxide 28 mmol/L (22-29); Chloride 105 mmol/L (98-107); Glomerular Filtration Rate 93.6 mL/min (90-130); Glucose 86 mg/dL (65-115); Osmolality Calculated 292 mOsm/kg (285-295); Potassium 3.6 mmol/L (3.5-5.1); Sodium 141 mmol/L (136-145); Thyroid Stimulating Hormone 0.12 uIU/mL (0.27-4.20); Total Bilirubin 0.3 mg/dL (0.15-1.2); Total Protein 7.2 g/dL (6.6-8.7)
[2021-11-16 20:14] LABS: Amphetamines Screen Urine Positive (Negative); Barbiturates Screen Urine Negative (Negative); Benzodiazepines Screen Urine Negative (Negative); Cocaine Screen Urine Negative (Negative); Opiate Screen Urine Negative (Negative); PCP Screen Urine Negative (Negative); THC Screen Urine Negative (Negative)
[2021-11-16 20:17] LABS: Acetaminophen < 5.0 ug/mL (10-30); Alcohol Level < 10 mg/dL (0-10); Salicylate < 0.3 mg/dL (3-10)
[2021-11-16 20:25] LABS: Add Urine Microscopic? YES; Bilirubin Urine Neg (Negative); Blood Urine 3+ (Negative); Glucose Urine UA Norm (Normal); Ketones Urine Negative (Negative); Leukocyte Esterase Urine Negative (Negative); Nitrate Urine Negative (Negative); Protein Urine Neg (Negative); Urine Appearance Clear (CLEAR); Urine Color Yellow (Yellow); Urobilinogen Urine 4 mg/dL (Negative); pH Urine 5 (5-7)
[2021-11-16 20:27] LABS: Bacteria Urine TRACE /hpf; Mucus Urine 1+ /hpf; WBC Urine 0-4 /hpf (0-5)
[2021-11-16 20:28] LABS: Add Urine Culture? No; Calcium Oxalate Crystals Urine 15-25 /hpf
--- NOTE | 2021-11-16 21:21 | PC.NURSE ---
report called to NPU at this time, patient accepted to 154-1.
[2021-11-16 22:02] VITALS: BP 137/77; PULSE 60; RESP 18; TEMP 36.7; O2SAT 96
[2021-11-16 22:06] VITALS: RESP 19; O2SAT 100
[2021-11-16 22:23] VITALS: BMI 39.1
[2021-11-16] MEDS: ibuprofen 600 mg Tablet PO (22:30)
[2021-11-17 06:00] VITALS: BP 141/80; PULSE 50; RESP 15; TEMP 36.6; O2SAT 96
[2021-11-17] MEDS: hyDROXYzine 25 mg Capsule 50 MG PO (08:32)
[2021-11-17] MEDS: nicotine 2 mg Gum BUCCAL ×2 (08:32→12:43)
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
[2021-11-17 13:43] VITALS: BP 113/78; PULSE 60; RESP 17; TEMP 36.7; O2SAT 96
[2021-11-17 20:15] VITALS: BP 128/71; PULSE 78; RESP 18; TEMP 36.8; O2SAT 94
[2021-11-18] MEDS: hyDROXYzine 25 mg Capsule 50 MG PO ×3 (00:51→21:00)
[2021-11-18 06:00] VITALS: BP 171/89; PULSE 54; RESP 17; TEMP 36.7; O2SAT 98
[2021-11-18] MEDS: nicotine 2 mg Gum BUCCAL (11:48)
[2021-11-18 14:00] VITALS: BP 162/94; PULSE 58; RESP 16; O2SAT 96
--- NOTE | 2021-11-18 17:52 | W.PM.NPUPNS ---
Subjective NPU Subjective: Maribell is a 36-year-old white female with methamphetamine abuse with a 4 history of bipolar disorder admitted with suicidal ideation no medications at this time. Patient had reported continuing to feel tired at this time. She reported a history of excessive daytime sleepiness and low energy. She had continued report depressed mood. She acknowledged a past history of decreased need for sleep high energy and frequent mood swings. He also reported a past history of periods of intense depression lasting for weeks. The patient reports that she had been decreased the frequency of her methamphetamine and states that she had stopped for several weeks before starting up again over the last 2 days prior to admission. Mental Status Exam MSE Comments: Patient had purple and pink hair and was sitting in bed initially. She was more alert and oriented to person place and time today. Her mood is described as okay. Her affect was mood incongruent and restricted in range. Her thought process was linear logical and goal-directed. Her thought content showed no evidence of active homicidal or suicidal ideation. She did not appear to be responding to internal stimuli. There was no clear evidence of delusional thinking. Her insight was poor. Her judgment was poor. Her speech was normal in regards to rate rhythm and prosody. Her impulse control appeared poor. Vitals/I&O/Wt Last Vital Signs Temp 98.1 F 11/18/21 06:00 Pulse 58 L 11/18/21 14:00 Resp 16 11/18/21 14:00 BP 162/94 11/18/21 14:00 Pulse Ox 96 11/18/21 14:00 O2 Del Method 11/18/21 14:00 Weight last 48 hrs Weight 103.419 kg Weight 103.419 kg Weight 114.759 kg Data NPU : 11/16/21 19:17 11/16/21 19:17 A&P Assessment and plan (1) Depressed mood: Status: Acute (2) Methamphetamine abuse: Status: Acute (3) Suicidal ideation: Status: Acute (4) PTSD (post-traumatic stress disorder): Status: Acute (5) Bipolar disorder: Status: Acute Plan Patient is a 36-year-old white female with a past history of PTSD and history of bipolar disorder admitted with depressed mood suicidal ideation along with concurrent methamphetamine abuse. 1. We will gather collateral information and further history once the patient is more awake and alert. 2. Therapeutic observation 15-minute checks. 3. Restart celexa 10mg in am, olanzapine 5mg at night. 4. Encourage individual, group and milieu therapy Involuntary Hold Information 96 Hour Hold: 96 Hour Involuntary Admission: No Attestations NPU Medical Necessity Statement*: Psychiatric hospitalization is medically necessary to prevent access to lethal means, to reevaluate medication and to coordinate a safe discharge.? The patient will require inpatient hospitalization with likely length of stay is 3-5 days.? ? 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
[2021-11-18] MEDS: citalopram 20 mg Tablet 10 MG PO (21:00)
[2021-11-18] MEDS: OLANZapine 5 mg TABLET PO (21:01)
[2021-11-18 22:00] VITALS: BP 133/91; PULSE 78; RESP 18; TEMP 36.7; O2SAT 96
--- NOTE | 2021-11-19 06:27 | PC.NURSE ---
pt refused vital signs this am
[2021-11-19 06:36] VITALS: RESP 18
[2021-11-19 13:50] VITALS: BP 127/76; PULSE 68; RESP 18; TEMP 36.6; O2SAT 95
[2021-11-19] MEDS: nicotine 2 mg Gum BUCCAL (15:00)
[2021-11-19] MEDS: ibuprofen 600 mg Tablet PO (15:02)
[2021-11-19] MEDS: OLANZapine 5 mg ODT PO ×2 (15:04→21:30)
--- NOTE | 2021-11-19 18:32 | P.NPUHP_ITS ---
Providers/Chief Complaint Admitting Physician: Deon Loza MD Chief Complaint: SI HPI NPU History of Present Illness Maribell is a 36-year-old white female with methamphetamine abuse with a history of bipolar disorder admitted with suicidal ideation no medications on admission. ? Patient had reported continuing to feel tired at this time.? Patient minimized any suicidal thoughts at this time. She had continue to report depressed mood. She had spent much of the day sleeping today and reported that she wished to return back to outpatient services through [facility] but did not wish to consider substance abuse treatment despite her history of misuse of both cocaine and methamphetamine. The patient reported having frequent mood swings but states that she was satisfied with the initiation of Zyprexa and Celexa yesterday. Meds NPU Home Medications Medication Instructions Recorded Confirmed Last Taken Type No Known Home Medications 11/17/21 11/17/21 Unknown History Allergies Allergy/AdvReac Type Severity Reaction Status Date / Time No Known Allergies Allergy Unverified 09/28/20 21:17 [facility] NPU PFSH: Medical History Left ureteral stone Psychiatric care Mental Status Exam MSE Comments: Patient had purple and pink hair and was sitting in bed [facility]. She was more alert and oriented to person place and time today. Her mood is described as allright Her affect was mood incongruent and remained restricted. Her thought process was linear logical and goal-directed. Her thought content showed no evidence of active homicidal or suicidal ideation. She did not appear to be responding to internal stimuli. There was no clear evidence of delusional thinking. Her insight was poor. Her judgment was poor. Her speech was normal in regards to rate rhythm and prosody. Her impulse control appeared poor. Vitals/I&O/Wt Last Vital Signs Temp 98 F 11/19/21 13:50 Pulse 68 11/19/21 13:50 Resp 18 11/19/21 13:50 BP 127/76 11/19/21 13:50 Pulse Ox 95 11/19/21 13:50 O2 Del Method 11/19/21 13:50 Data NPU : 11/16/21 19:17 11/16/21 19:17 A&P Assessment and plan (1) Depressed mood: Status: Acute (2) Methamphetamine abuse: Status: Acute (3) Suicidal ideation: Status: Acute (4) PTSD (post-traumatic stress disorder): Status: Acute (5) Bipolar disorder: Status: Acute Plan Patient is a 36-year-old white female with a past history of PTSD and history of bipolar disorder admitted with depressed mood suicidal ideation along with con current methamphetamine abuse. 1. We will gather collateral information and further history once the patient is more awake and alert. 2. Therapeutic observation 15-minute checks. 3. Increase celexa 20mg in am, olanzapine 5mg at night. 4. Encourage individual, group and milieu therapy Involuntary Hold Information 96 Hour Hold: 96 Hour Involuntary Admission: No Attestations NPU Medical Necessity Statement*: Psychiatric hospitalization is medically necessary to prevent access to lethal means, to reevaluate medication and to coordinate a safe discharge.? The patient will require inpatient hospitalization with likely length of stay until tommorow. ? 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
[2021-11-19] MEDS: citalopram 20 mg Tablet 10 MG PO (19:13)
[2021-11-19] MEDS: trazodone 50 mg Tablet PO (21:30)
[2021-11-19 22:00] VITALS: RESP 20
[2021-11-20 06:00] VITALS: BP 161/81; PULSE 60; RESP 18; O2SAT 95
[2021-11-20] MEDS: citalopram 20 mg Tablet PO (08:13)
[2021-11-20 14:00] VITALS: BP 118/75; PULSE 56; RESP 17; TEMP 36.8; O2SAT 95
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
[2021-11-20 14:34] VITALS: BP 118/75; PULSE 56; RESP 17; TEMP 36.8; O2SAT 95
[2021-11-20] MEDS: nicotine 2 mg Gum BUCCAL (16:10)
== END 2021-11-20 18:09 | disposition home or self-care (01) | DRG 885 ==
LOC: ER 18:50 → NP 21:18
PROVIDERS: Admitting Provider Psychiatry & Neurology Psychiatry; Emergency Provider Registered Nurse; Visit Provider Psychiatry & Neurology Psychiatry
DX: F31.9 Bipolar disorder, unspecified (principal); R45.851 Suicidal ideations; R45.89 Other symptoms and signs involving emotional state; F43.10 Post-traumatic stress disorder, unspecified; F15.10 Other stimulant abuse, uncomplicated; Z62.810 Personal history of physical and sexual abuse in childhood
CPT/HCPCS: 80053; 80306; 80307; 81001; 81025; 84443; 85025; 97165; 99285

== ENCOUNTER 2022-01-11 20:34 | Emergency (ER) | payer MEDICAID, SELFPAY ==
[2022-01-11 20:40] VITALS: BP 106/72; PULSE 102; RESP 20; TEMP 35.9; O2SAT 98; BMI 40.1
--- NOTE | 2022-01-11 20:49 | ECG_ITS ---
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 Measurements Intervals [place] Rate: 55 P: 73 NM: 137 QRS: 60 QRSD: 85 T: -12 QT: 402 QTc: 387 Interpretive Statements SINUS BRADYCARDIA WITH SINUS ARRHYTHMIA NONSPECIFIC T-WAVE ABNORMALITY INTERPRETATION BASED ON A DEFAULT AGE OF 40 YEARS Compared to ECG 09/28/2020 21:33:29 T-wave abnormality now present Sinus rhythm no longer present Electronically Signed On 01-12-2022 10:15:49 CDT by Kemal Roman M.D. [id number]
--- NOTE | 2022-01-11 20:49 | CTR_ITS ---
PROCEDURE INFORMATION: Exam: CT Head Without Contrast Exam date and time: 01/11/2022 9:31 PM Age: 36 years old Clinical indication: Altered mental status/memory loss; Additional info: AMS TECHNIQUE: Imaging protocol: Computed tomography of the head without contrast. Radiation optimization: All CT scans at this facility use at least one of these dose optimization techniques: automated exposure control; mA and/or kV adjustment per patient size (includes targeted exams where dose is matched to clinical indication); or iterative reconstruction. COMPARISON: No relevant prior studies available. RADIATION DOSE METRICS: Total DLP (mGy-cm): 1475.79 FINDINGS: Brain: Normal. No hemorrhage. Unremarkable white matter. No mass effect. Cerebral ventricles: No ventriculomegaly. Paranasal sinuses: Visualized sinuses are unremarkable. No fluid levels. Mastoid air cells: Visualized mastoid air cells are well aerated. Bones/joints: Unremarkable. No acute fracture. Soft tissues: Unremarkable. Other findings: Examination is limited secondary to motion artifact. CT/CT head wo con* [id number] IMPRESSION: No acute findings.
--- NOTE | 2022-01-11 20:49 | XRR_ITS ---
PROCEDURE INFORMATION: Exam: XR Chest Exam date and time: 01/11/2022 9:16 PM Age: 36 years old Clinical indication: Other: Overdose; Additional info: Od TECHNIQUE: Imaging protocol: Radiologic exam of the chest. Views: 1 view. COMPARISON: CR XR chest 1V portable [id number] 09/28/2020 8:49 PM FINDINGS: Lungs: Unremarkable. No consolidation. Pleural spaces: Unremarkable. No pleural effusion. No pneumothorax. Heart/Mediastinum: Unremarkable. No cardiomegaly. Bones/joints: Unremarkable. Other findings: Patient rotation to the right. XR/XR chest 1V portable [id number] IMPRESSION: No acute findings.
[2022-01-11] MEDS: sodium chloride 0.9% 1,000 ML 999 ML IV ×2 (20:56→21:22)
[2022-01-11 21:57] LABS: Glucose Point of Care 111 mg/dL (70-110)
[2022-01-11 22:05] LABS: Basophils # 0.1 10^3/uL (0.0-0.1); Basophils % 0.4 %; Eosinophils % 0.3 %; Hematocrit 39.3 % (37.0-47.0); Hemoglobin 12.7 g/dL (11.5-15.3); Lymphocytes # 1.6 10^3/uL (0.8-4.8); Lymphocytes % 11.9 %; Mean Corpuscular HGB Conc 32.3 g/dL (30.0-36.0); Mean Corpuscular Hemoglobin 29.2 pg (28.0-34.0); Mean Corpuscular Volume 90.3 fl (81-99); Mean Platelet Volume 9.8 fL (7.4-10.4); Monocytes # 0.8 10^3/uL (0.2-0.9); Monocytes % 5.9 %; Neutrophils # 11.01 10^3/uL (1.8-7.7); Neutrophils % 81.1 %; Nucleated Red Blood Cells % 0 %; Platelet Count 297 10^3/cmm (130-400); Red Blood Count 4.35 10^6/uL (4.1-5.3); Red Cell Distribution Width 13.3 % (12.1-15.1); White Blood Count 13.6 10^3/uL (4.0-10.0)
[2022-01-11 22:15] LABS: SARS Covid-2 Antigen negative (Negative)
[2022-01-11 22:17] LABS: INR 1.02 (0.8-1.2)
[2022-01-11 22:21] LABS: HCG, Serum Qual Negative (Negative)
[2022-01-11 22:30] LABS: Acetaminophen < 5.0 ug/mL (10-30); Alanine Aminotransferase 14 U/L (0-33); Albumin Level 3.6 g/dL (3.5-5.2); Alkaline Phosphatase 76 U/L (35-105); Anion Gap 11.4 (5-19); Aspartate Amino Transferase 16 U/L (0-32); Blood Urea Nitrogen 20 mg/dL (6-20); Calcium 9.1 mg/dL (8.5-10.5); Carbon Dioxide 27 mmol/L (22-29); Chloride 100 mmol/L (98-107); Globulin 3.3 g/dL (1.3-4.6); Glomerular Filtration Rate 93.6 mL/min (90-130); Glucose 107 mg/dL (65-115); Osmolality Calculated 283 mOsm/kg (285-295); Potassium 3.4 mmol/L (3.5-5.1); Salicylate < 0.3 mg/dL (3-10); Sodium 135 mmol/L (136-145); Total Bilirubin 0.4 mg/dL (0.15-1.2); Total Protein 6.9 g/dL (6.6-8.7)
[2022-01-11 22:36] LABS: Amphetamines Screen Urine Positive (Negative); Barbiturates Screen Urine Negative (Negative); Benzodiazepines Screen Urine Negative (Negative); Cocaine Screen Urine Negative (Negative); Opiate Screen Urine Negative (Negative); PCP Screen Urine Negative (Negative); THC Screen Urine Negative (Negative)
[2022-01-11 22:40] LABS: Add Urine Microscopic? YES; Bilirubin Urine Neg (Negative); Blood Urine 2+ (Negative); Glucose Urine UA Norm (Normal); Ketones Urine Negative (Negative); Leukocyte Esterase Urine Negative (Negative); Nitrate Urine Negative (Negative); Protein Urine Neg (Negative); Urine Appearance Clear (CLEAR); Urine Color Yellow (Yellow); Urobilinogen Urine Neg (Negative); pH Urine 6 (5-7)
[2022-01-11 22:43] LABS: Add Urine Culture? No; RBC Urine 0-4 /hpf (0-2); Squamous Epithelial Cell Urine 0-4 /hpf (0-5); WBC Urine 0-4 /hpf (0-5)
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
[2022-01-11 23:37] LABS: Alcohol Level < 10 mg/dL (0-10)
[2022-01-12 03:52] VITALS: BP 106/58; PULSE 64; RESP 20; O2SAT 95
== END 2022-01-12 05:21 | disposition home or self-care (01) ==
PROVIDERS: Emergency Provider Emergency Medicine
DX: F15.129 Other stimulant abuse with intoxication, unspecified (principal); Z20.822 Contact with and (suspected) exposure to COVID-19
CPT/HCPCS: 36416; 70450; 71045; 80053; 80306; 80307; 81001; 82962; 84703; 85025; 85610; 87426; 93005; 96374; 99285; J2310; J7030

== ENCOUNTER 2022-09-30 11:36 | Emergency (ER) | payer MEDICAID, SELFPAY ==
[2022-09-30 11:44] VITALS: BMI 40.5
--- NOTE | 2022-09-30 11:45 | ED_ITS ---
HPI - Back Pain/Injury General: Chief Complaint: Back Pain/Injury Stated Complaint: Diarrhea, Lower back pain Time Seen by Provider: 09/30/22 11:38 Source: patient Mode of arrival: ambulatory History of Present Illness: 37-year-old female presents emergency room with complaint of bilateral back pain. She told the nurse she had flank pain however she indicated more of lower back pain at the time I took her history. She denies any hematuria no fever sweats or chills no dysuria urgency or frequency refers the pain to the L5-S1 level and paraspinal muscle masses. There is no radicular symptoms no urinary retention or fecal incontinence. She does not recall any precipitating event. She has also reported some loose stools no hematochezia melena hematemesis or coffee-ground emesis. MD elicited complaint: back pain Pertinent past history: prior back pain Onset (ago): hour(s) Severity: moderate Similar Symptoms Previously: Yes Quality: sharp Location: lumbar spine Radiation: none Exacerbating factors: movement Relieving factors: none Associated symptoms: Deny abdominal pain, arthralgias, chills, change in bowel habits, difficulty walking, dysuria, fatigue, fecal incontinence, fever(s), hematuria, myalgias, nausea, numbness, syncope, tingling/numbness/burning, urinary frequency, urinary urgency, vomiting or weakness Review of Systems Const: Denies: fever(s), chills or fatigue ENMT: Denies: throat pain, ear or mastoid pain, nasal discharge or nasal congestion Card: Denies: syncope Resp: Denies: dyspnea, productive cough or non-productive cough GI: Reports: diarrhea; Denies: abdominal pain, nausea, vomiting, fecal incontinence or change in bowel habits : Denies: dysuria, urinary frequency, urinary urgency or hematuria Skin/Breast: Denies: rash or pruritus Neuro: Denies: difficulty walking PFS ED PFSH: Medical History Left ureteral stone Physical Exam Const: COMMON NORMALS: no acute distress GENERAL APPEARANCE: cooperative and comfortable ORIENTATION/CONSCIOUSNESS: Yes awake, Yes oriented to person, Yes oriented to place and Yes oriented to time HENMT: COMMON NORMALS: normocephalic, atraumatic and hearing grossly normal bilaterally HEAD & SCALP: normocephalic and atraumatic Resp: COMMON NORMALS: normal respiratory effort, No retractions, No use of accessory muscles and clear to auscultation bilaterally AUSCULTATION: clear t o auscultation bilaterally Cardio: COMMON NORMALS: regular rate, regular rhythm and No murmurs present (Cardio) RATE: regular rate RHYTHM: regular rhythm GI: COMMON NORMALS: Soft to palpation and No hepatosplenomegaly present AUSCULTATION: Yes normoactive bowel sounds PALPATION: Yes Soft to palpation, No Tenderness to palpation present (GI), No Guarding due to palpation present (GI) and Yes No hepatosplenomegaly present Extremity: COMMON NORMALS: normal to inspection, capillary refill normal, no clubbing, cyanosis or edema, no calf tenderness and no pedal edema OTHER: Straight leg raising is negative dorsum plantarflexion 5 of 5 EHL 5 5 deep tendon reflexes +2/4 patellar tendon sensation lower extremities normal Neuro: SENSORIUM/ORIENTATION: Yes oriented to person, Yes oriented to place and Yes oriented to time Skin: COMMON NORMALS: no rashes or lesions noted GENERAL SKIN EXAM: no rashes or lesions noted Course Vital Signs: Vital signs: Vital Signs Temperature 97.8 F 09/30/22 11:47 Pulse Rate 73 09/30/22 11:47 Respiratory Rate 18 09/30/22 11:47 Blood Pressure 158/92 09/30/22 11:47 Pulse Oximetry 98 09/30/22 11:47 Oxygen Delivery Me thod Room Air 09/30/22 11:47 MDM - Back Pain/Injury Medical Decision Making Urine is negative. BMP unremarkable. Patient's exam is normal abdominal exam is benign. We will discharge patient home treat for musculoskeletal low back pain patient states she did improve with this medication she was given here return if she has further problems. Differential Diagnosis Likely lumbar radiculopathy, sciatica, strain of lumbar region, renal colic and pyelonephritis Medical Records I reviewed the patient's medical records. Labs I reviewed the patient's lab results. 09/30/22 12:02 Laboratory Results Sodium 137 mmol/L (136-145) 09/30/22 12:02 Potassium 4.3 mmol/L (3.5-5.1) 09/30/22 12:02 Chloride 100 mmol/L (98-107) 09/30/22 12:02 Carbon Dioxide 29 mmol/L (22-29) 09/30/22 12:02 Anion Gap 12.3 (5-19) 09/30/22 12:02 BUN 13 mg/dL (6-20) 09/30/22 12:02 Creatinine 0.6 mg/dL (0.5-0.9) 09/30/22 12:02 GFR Calculation 111.3 mL/min (90-130) 09/30/22 12:02 Glucose 69 mg/dL (65-115) 09/30/22 12:02 Calculated Osmolality 282 mOsm/kg (285-295) L 09/30/22 12:02 Calcium 8.8 mg/dL (8.5-10.5) 09/30/22 12:02 Urine Color Yellow (Yellow) 09/30/22 12:20 Urine Appearance Clear (CLEAR) 09/30/22 12:20 Urine pH 9 (5-7) H 09/30/22 12:20 Ur Specific [place] 1.010 (1.005-1.030) 09/30/22 12:20 Urine Protein Neg (Negative) 09/30/22 12:20 Urine Glucose (UA) Norm (Normal) 09/30/22 12:20 Urine Ketones Negative (Negative) 09/30/22 12:20 Urine Blood Neg (Negative) 09/30/22 12:20 Urine Nitrate Negative (Negative) 09/30/22 12:20 Urine Bilirubin Neg (Negative) 09/30/22 12:20 Prot Sulfosalicylic Acd Negative (Negative) 09/30/22 12:20 Urine Urobilinogen Norm mg/dL (Negative) 09/30/22 12:20 Ur Leukocyte Esterase Negative (Negative) 09/30/22 12:20 Discharge Plan Discharge Patient Disposition: Home Clinical Impression: Strain of lumbar region Condition: Stable Prescriptions: New tizanidine 4 mg tablet 4 mg PO Q6H PRN (Reason: muscle spasticity) Qty: 20 0RF Rx Instructions: do not exceed 3 doses per 24 hrs prednisone 20 mg tablet 20 mg PO TID Qty: 15 0RF Rx Instructions: 1 p.o. 3 times daily x3 days, 1 p.o. twice daily x2 days, 1 p.o. daily x2 days diclofenac sodium 75 mg tablet,delayed release (DR/EC) 75 mg PO Q12H PRN (Reason: pain) Qty: 20 0RF No Action triamcinolone acetonide 0.1 % ointment 1 applic topical BID Qty: 15 0RF ibuprofen 800 mg Tablet 800 mg PO TID PRN (Reason: Pain) omeprazole 40 mg Capsule,Delayed Release(Dr/Ec) 40 mg PO DAILY triamcinolone acetonide 0.1 % cream 1 applic TOPICAL TID lisinopril-hydrochlorothiazide 10-12.5 mg Tablet 1 tab PO DAILY Ventolin HFA 90 mcg/actuation Hfa Aerosol Inhaler 2 puff INHALATION QID PRN (Reason: Wheezing) Discharge Orders: Discharge ED (Routine); Ordered 09/30/22 Ordered By: Syd Sullivan Referrals: Mikey Morrow MD [Primary Care Provider] - Patient Instructions: Opioid Safety, Pain Management Stand Alone Forms: Work/School Release 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
[2022-09-30 11:47] VITALS: BP 158/92; PULSE 73; RESP 18; TEMP 36.6; O2SAT 98
[2022-09-30] MEDS: dexamethasone 10 mg/mL INJ IVP (12:11)
[2022-09-30] MEDS: tizanidine 4 mg Tablet PO (12:11)
[2022-09-30] MEDS: ketorolac 30 mg/mL INJ IVP (12:11)
[2022-09-30] MEDS: lactated ringers 1,000 ML 999 ML IV (12:12)
[2022-09-30 12:37] LABS: Charge for UA Resulting for Rev
[2022-09-30 12:43] LABS: Blood Urea Nitrogen 13 mg/dL (6-20); Calcium 8.8 mg/dL (8.5-10.5); Carbon Dioxide 29 mmol/L (22-29); Chloride 100 mmol/L (98-107); Creatinine Clr Calc Pharmacy 150.3154; Glomerular Filtration Rate 111.3 mL/min (90-130); Glucose 69 mg/dL (65-115); Osmolality Calculated 282 mOsm/kg (285-295); Sodium 137 mmol/L (136-145)
[2022-09-30 12:46] LABS: Anion Gap 12.3 (5-19); Potassium 4.3 mmol/L (3.5-5.1)
[2022-09-30 12:49] LABS: Add Urine Microscopic? NO; Bilirubin Urine Neg (Negative); Blood Urine Neg (Negative); Glucose Urine UA Norm (Normal); Ketones Urine Negative (Negative); Leukocyte Esterase Urine Negative (Negative); Nitrate Urine Negative (Negative); Protein Urine Neg (Negative); Sulfosalicylic Acid Urine Negative (Negative); Urine Appearance Clear (CLEAR); Urine Color Yellow (Yellow); Urobilinogen Urine Norm (Negative); pH Urine 9 (5-7)
== END 2022-09-30 14:21 | disposition home or self-care (01) ==
PROVIDERS: Emergency Provider Family Medicine; PCP Family Medicine
DX: S39.012A Strain of muscle, fascia and tendon of lower back, initial encounter (principal); X58.XXXA Exposure to other specified factors, initial encounter
CPT/HCPCS: 80048; 81003; 96374; 96375; 99284; J1100; J1885; J7120

== ENCOUNTER 2022-10-01 05:10 | Emergency (ER) | payer MEDICAID, SELFPAY ==
[2022-10-01 05:17] VITALS: BP 162/101; PULSE 97; RESP 24; TEMP 36.8; O2SAT 96; BMI 56.6
--- NOTE | 2022-10-01 05:24 | W.ED.ABDPA2 ---
Documented by User: Jovita Ocasio MD 10/01/22 05:25 HPI - Abdominal Pain General: Chief Complaint: Abdominal Pain Stated Complaint: ABD Pain\Cramps Time Seen by Provider: 10/01/22 05:18 Source: patient Mode of arrival: ambulatory Limitations: no limitations History of Present Illness: 37-year-old female who states that she was seen here yesterday for dehydration and has been having some abdominal pain she states that she is working tonight at 230 started having severe back and pelvic pain. States pain is been a 10 out of 10 states she still feels like she may be dehydrated as well. No vomiting no diarrhea denies any worsening proving factors. Associated Symptoms: Denies chills, fever(s), nausea and vomiting Related Data: Date of Last Menstrual Period: 10/01/22 Review of Systems Const: Denies: fever(s) or chills Eyes: Denies: eye discomfort ENMT: Denies: throat pain or dental pain Card: Denies: chest pain Resp: Denies: dyspnea GI: Reports: abdominal pain; Denies: nausea or vomiting : Reports: flank pain Musc: Reports: back pain; Denies: neck pain Skin/Breast: Denies: rash Neuro: Denies: headache(s) PFSH ED PFSH: Medical History Left ureteral stone Female Reproductive History: Date of last menstrual period: 10/01/22 Physical Exam Const: COMMON NORMALS: no acute distress, patient oriented x3 and healthy appearing HENMT: COMMON NORMALS: normocephalic and atraumatic HEAD & SCALP: normocephalic and atraumatic Eye: COMMON NORMALS: Equal, round and reactive pupils present and EOMs intact bilaterally PUPIL: Yes Equal, round and reactive pupils present Neck/C-Spine: COMMON NORMALS: full ROM and supple Chest: COMMONS NORMALS: normal inspection of the chest and normal palpation of entire chest wall Resp: COMMON NORMALS: normal respiratory effort, No retractions, No use of accessory muscles and clear to auscultation bilaterally AUSCULTATION: clear to auscultation bilaterally Cardio: COMMON NORMALS: regular rate, regular rhythm and No murmurs present (Cardio) RATE: regular rate RHYTHM: regular rhythm GI: COMMON NORMALS: Normal to inspection, nondistended, normoactive bowel sounds present, Soft to palpation, non-tender and no masses PALPATION: Yes Soft to palpation Extremity: COMMON NORMALS: normal to inspection and full ROM Neuro: COMMON NORMALS: patient oriented x3, moves all extremities and no focal motor deficits Psych: COMMON NORMALS: mental status grossly normal, Normal thought process present and cooperative THOUGHT PROCESS: Normal thought process present Skin: COMMON NORMALS: no rashes or lesions noted and no wounds GENERAL SKIN EXAM: no rashes or lesions noted Course Vital Signs: Vital signs: Vital Signs Temperature 98.3 F 10/01/22 05:17 Pulse Rate 82 10/01/22 07:03 Respiratory Rate 20 H 10/01/22 05:32 Blood Pressure 151/56 10/01/22 07:03 Pulse Oximetry 95 10/01/22 07:03 Oxygen Delivery Me thod Room Air 10/01/22 06:31 MDM - Abdominal Pain Lab Data 10/01/22 05:25 10/01/22 05:25 Labs/Radiology: Radiology Impressions Abdomen/Pelvis CT 10/01/22 05:46 IMPRESSION: 1. Cholelithiasis. 2. 1 mm nonobstructing left renal calculus. 3. Additional findings as described above. Laboratory Results WBC 14.1 10^3/uL (4.0-10.0) H 10/01/22 05:25 RBC 4.92 10^6/uL (4.1-5.3) 10/01/22 05:25 Hgb 14.1 g/dL (11.5-15.3) 10/01/22 05:25 Hct 42.4 % (37.0-47.0) 10/01/22 05:25 MCV 86.2 fl (81-99) 10/01/22 05:25 MCH 28.7 pg (28.0-34.0) 10/01/22 05:25 MCHC 33.3 g/dL (30.0-36.0) 10/01/22 05:25 RDW 12.5 % (12.1-15.1) 10/01/22 05:25 Plt Count 290 10^3/cmm (130-400) 10/01/22 05:25 MPV 9.5 fL (7.4-10.4) 10/01/22 05:25 Neut % (Auto) 85.9 % 10/01/22 05:25 Lymph % (Auto) 9.2 % 10/01/22 05:25 [place] % (Auto) 4.2 % 10/01/22 05:25 Eos % (Auto) 0.0 % 10/01/22 05:25 Baso % (Auto) 0.1 % 10/01/22 05:25 Neut # (Auto) 12.09 10^3/uL (1.8-7.7) H 10/01/22 05:25 Lymph # (Auto) 1.3 10^3/uL (0.8-4.8) 10/01/22 05:25 [place] # (Auto) 0.6 10^3/uL (0.2-0.9) 10/01/22 05:25 Eos # (Auto) 0.0 10^3/uL (0.0-0.8) 10/01/22 05:25 Baso # (Auto) 0.0 10^3/uL (0.0-0.1) 10/01/22 05:25 Nucleated RBC % (auto) 0 % 10/01/22 05:25 Nucleated RBCs # 0.0 /100WBC 10/01/22 05:25 Sodium 138 mmol/L (136-145) 10/01/22 05:25 Potassium 4.1 mmol/L (3.5-5.1) 10/01/22 05:25 Chloride 104 mmol/L (98-107) 10/01/22 05:25 Carbon Dioxide 24 mmol/L (22-29) 10/01/22 05:25 Anion Gap 14.1 (5-19) 10/01/22 05:25 BUN 13 mg/dL (6-20) 10/01/22 05:25 Creatinine 0.6 mg/dL (0.5-0.9) 10/01/22 05:25 GFR Calculation 111.3 mL/min (90-130) 10/01/22 05:25 Glucose 131 mg/dL (65-115) H 10/01/22 05:25 Calculated Osmolality 288 mOsm/kg (285-295) 10/01/22 05:25 Calcium 9.6 mg/dL (8.5-10.5) 10/01/22 05:25 Total Bilirubin 0.3 mg/dL (0.15-1.2) 10/01/22 05:25 AST 15 U/L (0-32) 10/01/22 05:25 ALT 15 U/L (0-33) 10/01/22 05:25 Alkaline Phosphatase 78 U/L (35-105) 10/01/22 05:25 Total Protein 7.1 g/dL (6.6-8.7) 10/01/22 05:25 Albumin 4.3 g/dL (3.5-5.2) 10/01/22 05:25 Globulin 2.8 g/dL (1.3-4.6) 10/01/22 05:25 Lipase 13 U/L (13-60) 10/01/22 05:25 HCG, Qual Negative (Negative) 10/01/22 05:25 Urine Color Yellow (Yellow) 10/01/22 05:25 Urine Appearance Clear (CLEAR) 10/01/22 05:25 Urine pH 7 (5-7) 10/01/22 05:25 Ur Specific [place] 1.010 (1.005-1.030) 10/01/22 05:25 Urine Protein Neg (Negative) 10/01/22 05:25 Urine Glucose (UA) Norm (Normal) 10/01/22 05:25 Urine Ketones Negative (Negative) 10/01/22 05:25 Urine Blood Neg (Negative) 10/01/22 05:25 Urine Nitrate Negative (Negative) 10/01/22 05:25 Urine Bilirubin Neg (Negative) 10/01/22 05:25 Urine Urobilinogen Neg mg/dL (Negative) 10/01/22 05:25 Ur Leukocyte Esterase Negative (Negative) 10/01/22 05:25 Discharge Plan Discharge Patient Disposition: Home Clinical Impression: Abdominal pain Condition: Stable Prescriptions: No Action triamcinolone acetonide 0.1 % ointment 1 applic topical BID Qty: 15 0RF ibuprofen 800 mg Tablet 800 mg PO TID PRN (Reason: Pain) omeprazole 40 mg Capsule,Delayed Release(Dr/Ec) 40 mg PO DAILY triamcinolone acetonide 0.1 % cream 1 applic TOPICAL TID lisinopril-hydrochlorothiazide 10-12.5 mg Tablet 1 tab PO DAILY Ventolin HFA 90 mcg/actuation Hfa Aerosol Inhaler 2 puff INHALATION QID PRN (Reason: Wheezing) tizanidine 4 mg tablet 4 mg PO Q6H PRN (Reason: muscle spasticity) Qty: 20 0RF Rx Instructions: do not exceed 3 doses per 24 hrs prednisone 20 mg tablet 20 mg PO TID Qty: 15 0RF Rx Instructions: 1 p.o. 3 times daily x3 days, 1 p.o. twice daily x2 days, 1 p.o. daily x2 days diclofenac sodium 75 mg tablet,delayed release (DR/EC) 75 mg PO Q12H PRN (Reason: pain) Qty: 20 0RF Discharge Orders: Discharge ED (Routine); Ordered 10/01/22 Ordered By: ySd Sullivan Referrals: Mikey Morrow MD [Primary Care Provider] - Discharge Diet: Clear Liquid Discharge Activity: Increase activity as tolerated Patient Instructions: Abdominal Pain (ED), Opioid Safety, Pain Management Activity Restrictions/Additional Instructions: You were seen for abdominal pain. There is a slight increase in your white blood cell count however your CT was unremarkable. You did have some gallstones but there is no evidence of inflammation of the gallbladder either on the CT or on the lab work. Recommend clear liquid diet for 24 to 48 hours and advance as tolerated if symptoms persist follow-up with your primary care doctor. 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 Ocasio. CT is unremarkable Labs reviewed. Her white count is up but we had put her on prednisone yesterday for her back which I think accounts for her leukocytosis. She reviewed the CT findings with her she states she is feeling better we will discharge her home recommend bland diet the next couple of days and follow-up as needed Medical Records I reviewed the patient's medical records. Lab Data I reviewed the patient's lab results. 10/01/22 05:25 10/01/22 05:25 Labs/Radiology: Radiology Impressions Abdomen/Pelvis CT 10/01/22 05:46 IMPRESSION: 1. Cholelithiasis. 2. 1 mm nonobstructing left renal calculus. 3. Additional findings as described above. Laboratory Results WBC 14.1 10^3/uL (4.0-10.0) H 10/01/22 05:25 RBC 4.92 10^6/uL (4.1-5.3) 10/01/22 05:25 Hgb 14.1 g/dL (11.5-15.3) 10/01/22 05:25 Hct 42.4 % (37.0-47.0) 10/01/22 05:25 MCV 86.2 fl (81-99) 10/01/22 05:25 MCH 28.7 pg (28.0-34.0) 10/01/22 05:25 MCHC 33.3 g/dL (30.0-36.0) 10/01/22 05:25 RDW 12.5 % (12.1-15.1) 10/01/22 05:25 Plt Count 290 10^3/cmm (130-400) 10/01/22 05:25 MPV 9.5 fL (7.4-10.4) 10/01/22 05:25 Neut % (Auto) 85.9 % 10/01/22 05:25 Lymph % (Auto) 9.2 % 10/01/22 05:25 [place] % (Auto) 4.2 % 10/01/22 05:25 Eos % (Auto) 0.0 % 10/01/22 05:25 Baso % (Auto) 0.1 % 10/01/22 05:25 Neut # (Auto) 12.09 10^3/uL (1.8-7.7) H 10/01/22 05:25 Lymph # (Auto) 1.3 10^3/uL (0.8-4.8) 10/01/22 05:25 [place] # (Auto) 0.6 10^3/uL (0.2-0.9) 10/01/22 05:25 Eos # (Auto) 0.0 10^3/uL (0.0-0.8) 10/01/22 05:25 Baso # (Auto) 0.0 10^3/uL (0.0-0.1) 10/01/22 05:25 Nucleated RBC % (auto) 0 % 10/01/22 05:25 Nucleated RBCs # 0.0 /100WBC 10/01/22 05:25 Sodium 138 mmol/L (136-145) 10/01/22 05:25 Potassium 4.1 mmol/L (3.5-5.1) 10/01/22 05:25 Chloride 104 mmol/L (98-107) 10/01/22 05:25 Carbon Dioxide 24 mmol/L (22-29) 10/01/22 05:25 Anion Gap 14.1 (5-19) 10/01/22 05:25 BUN 13 mg/dL (6-20) 10/01/22 05:25 Creatinine 0.6 mg/dL (0.5-0.9) 10/01/22 05:25 GFR Calculation 111.3 mL/min (90-130) 10/01/22 05:25 Glucose 131 mg/dL (65-115) H 10/01/22 05:25 Calculated Osmolality 288 mOsm/kg (285-295) 10/01/22 05:25 Calcium 9.6 mg/dL (8.5-10.5) 10/01/22 05:25 Total Bilirubin 0.3 mg/dL (0.15-1.2) 10/01/22 05:25 AST 15 U/L (0-32) 10/01/22 05:25 ALT 15 U/L (0-33) 10/01/22 05:25 Alkaline Phosphatase 78 U/L (35-105) 10/01/22 05:25 Total Protein 7.1 g/dL (6.6-8.7) 10/01/22 05:25 Albumin 4.3 g/dL (3.5-5.2) 10/01/22 05:25 Globulin 2.8 g/dL (1.3-4.6) 10/01/22 05:25 Lipase 13 U/L (13-60) 10/01/22 05:25 HCG, Qual Negative (Negative) 10/01/22 05:25 Urine Color Yellow (Yellow) 10/01/22 05:25 Urine Appearance Clear (CLEAR) 10/01/22 05:25 Urine pH 7 (5-7) 10/01/22 05:25 Ur Specific [place] 1.010 (1.005-1.030) 10/01/22 05:25 Urine Protein Neg (Negative) 10/01/22 05:25 Urine Glucose (UA) Norm (Normal) 10/01/22 05:25 Urine Ketones Negative (Negative) 10/01/22 05:25 Urine Blood Neg (Negative) 10/01/22 05:25 Urine Nitrate Negative (Negative) 10/01/22 05:25 Urine Bilirubin Neg (Negative) 10/01/22 05:25 Urine Urobilinogen Neg mg/dL (Negative) 10/01/22 05:25 Ur Leukocyte Esterase Negative (Negative) 10/01/22 05:25 Discharge Plan Discharge Patient Disposition: Home Clinical Impression: Abdominal pain Condition: Stable Prescriptions: No Action triamcinolone acetonide 0.1 % ointment 1 applic topical BID Qty: 15 0RF ibuprofen 800 mg Tablet 800 mg PO TID PRN (Reason: Pain) omeprazole 40 mg Capsule,Delayed Release(Dr/Ec) 40 mg PO DAILY triamcinolone acetonide 0.1 % cream 1 applic TOPICAL TID lisinopril-hydrochlorothiazide 10-12.5 mg Tablet 1 tab PO DAILY Ventolin HFA 90 mcg/actuation Hfa Aerosol Inhaler 2 puff INHALATION QID PRN (Reason: Wheezing) tizanidine 4 mg tablet 4 mg PO Q6H PRN (Reason: muscle spasticity) Qty: 20 0RF Rx Instructions: do not exceed 3 doses per 24 hrs prednisone 20 mg tablet 20 mg PO TID Qty: 15 0RF Rx Instructions: 1 p.o. 3 times daily x3 days, 1 p.o. twice daily x2 days, 1 p.o. daily x2 days diclofenac sodium 75 mg tablet,delayed release (DR/EC) 75 mg PO Q12H PRN (Reason: pain) Qty: 20 0RF Discharge Orders: Discharge ED (Routine); Ordered 10/01/22 Ordered By: Syd Sullivan Referrals: Mikey Morrow MD [Primary Care Provider] - Discharge Diet: Clear Liquid Discharge Activity: Increase activity as tolerated Patient Instructions: Abdominal Pain (ED), Opioid Safety, Pain Management Activity Restrictions/Additional Instructions: You were seen for abdominal pain. There is a slight increase in your white blood cell count however your CT was unremarkable. You did have some gallstones but there is no evidence of inflammation of the gallbladder either on the CT or on the lab work. Recommend clear liquid diet for 24 to 48 hours and advance as tolerated if symptoms persist follow-up with your primary care doctor. 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
[2022-10-01 05:31] LABS: Basophils % 0.1 %; Hematocrit 42.4 % (37.0-47.0); Hemoglobin 14.1 g/dL (11.5-15.3); Lymphocytes # 1.3 10^3/uL (0.8-4.8); Lymphocytes % 9.2 %; Mean Corpuscular HGB Conc 33.3 g/dL (30.0-36.0); Mean Corpuscular Hemoglobin 28.7 pg (28.0-34.0); Mean Corpuscular Volume 86.2 fl (81-99); Mean Platelet Volume 9.5 fL (7.4-10.4); Monocytes # 0.6 10^3/uL (0.2-0.9); Monocytes % 4.2 %; Neutrophils # 12.09 10^3/uL (1.8-7.7); Neutrophils % 85.9 %; Nucleated Red Blood Cells % 0 %; Platelet Count 290 10^3/cmm (130-400); Red Blood Count 4.92 10^6/uL (4.1-5.3); Red Cell Distribution Width 12.5 % (12.1-15.1); White Blood Count 14.1 10^3/uL (4.0-10.0)
[2022-10-01] MEDS: sodium chloride 0.9% 1,000 ML 999 ML IV (05:31)
[2022-10-01] MEDS: ondansetron 2 mg/ML SDV 2 mL 4 MG IVP (05:31)
[2022-10-01 05:32] VITALS: RESP 20; O2SAT 96
[2022-10-01] MEDS: morphine 4 mg/mL SDV 1 mL IVP (05:32)
[2022-10-01 05:34] VITALS: O2SAT 95
[2022-10-01 05:38] LABS: Add Urine Microscopic? NO; Charge for UA Resulting for Rev
[2022-10-01 05:40] LABS: Bilirubin Urine Neg (Negative); Blood Urine Neg (Negative); Glucose Urine UA Norm (Normal); Ketones Urine Negative (Negative); Leukocyte Esterase Urine Negative (Negative); Nitrate Urine Negative (Negative); Protein Urine Neg (Negative); Urine Appearance Clear (CLEAR); Urine Color Yellow (Yellow); Urobilinogen Urine Neg (Negative); pH Urine 7 (5-7)
[2022-10-01 05:45] LABS: HCG, Serum Qual Negative (Negative)
--- NOTE | 2022-10-01 05:46 | CTR_ITS ---
PROCEDURE INFORMATION: Exam: CT Abdomen And Pelvis With Contrast Exam date and time: 10/01/2022 5:55 AM Age: 37 years old Clinical indication: Abdominal pain; Generalized; Prior surgery; Surgery date: 6+ months; Surgery type: Tubal, ; Additional info: Abd pain TECHNIQUE: Imaging protocol: Computed tomography of the abdomen and pelvis with contrast. Radiation optimization: All CT scans at this facility use at least one of these dose optimization techniques: automated exposure control; mA and/or kV adjustment per patient size (includes targeted exams where dose is matched to clinical indication); or iterative reconstruction. Contrast material: OMNI 350; Contrast volume: 100 ml; Contrast route: INTRAVENOUS (IV); REPORTING DATA: Count of CT and Cardiac NM exams in prior 12 months: This patient has received [address] and 0 known cardiac nuclear medicine studies in the 12 months prior to the current study. COMPARISON: CT abdomen pelvis w con* [id number] 01/10/2021 4:08 AM RADIATION DOSE METRICS: Total DLP (mGy-cm): 1165.83 FINDINGS: Lungs: No acute airspace or pleural disease. Liver: Fatty infiltration of the liver. Gallbladder and bile ducts: Cholelithiasis. No biliary ductal dilatation. Pancreas: No pancreatic mass or ductal dilatation. Spleen: No splenomegaly. Adrenal glands: Unremarkable adrenals. Kidneys and ureters: 1 mm nonobstructing left renal calculus. Stomach and bowel: Questionable wall thickening in the nondistended stomach. Mild bowel dilatation and prominent stool. Diverticula, without pericolonic inflammation. Appendix: No acute appendicitis. Intraperitoneal space: Small quantity of free fluid in the pelvis. Vasculature: Normal caliber of the abdominal aorta. Lymph nodes: Subcentimeter lymph nodes. Urinary bladder: Nondistended bladder. Reproductive: Unremarkable as visualized. Bones/joints: Mild degenerative change and L4-L5 vacuum disc. Soft tissues: Unremarkable. CT/CT abdomen pelvis w con* [id number] IMPRESSION: 1. Cholelithiasis. 2. 1 mm nonobstructing left renal calculus. 3. Additional findings as described above.
[2022-10-01] MEDS: iohexol 350 mg/mL 500 mL Btl (per mL) IV (05:48)
[2022-10-01 05:52] LABS: Alanine Aminotransferase 15 U/L (0-33); Albumin Level 4.3 g/dL (3.5-5.2); Alkaline Phosphatase 78 U/L (35-105); Aspartate Amino Transferase 15 U/L (0-32); Blood Urea Nitrogen 13 mg/dL (6-20); Calcium 9.6 mg/dL (8.5-10.5); Carbon Dioxide 24 mmol/L (22-29); Chloride 104 mmol/L (98-107); Globulin 2.8 g/dL (1.3-4.6); Glomerular Filtration Rate 111.3 mL/min (90-130); Glucose 131 mg/dL (65-115); Lipase 13 U/L (13-60); Osmolality Calculated 288 mOsm/kg (285-295); Sodium 138 mmol/L (136-145); Total Bilirubin 0.3 mg/dL (0.15-1.2); Total Protein 7.1 g/dL (6.6-8.7)
[2022-10-01 05:55] LABS: Anion Gap 14.1 (5-19); Potassium 4.1 mmol/L (3.5-5.1)
[2022-10-01 06:11] VITALS: BP 128/71
[2022-10-01 06:31] VITALS: BP 151/56; PULSE 76; O2SAT 98
[2022-10-01 07:03] VITALS: BP 151/56; PULSE 82; O2SAT 95
== END 2022-10-01 07:04 | disposition home or self-care (01) ==
PROVIDERS: Emergency Medicine; Emergency Provider Family Medicine; PCP Family Medicine
DX: K80.20 Calculus of gallbladder without cholecystitis without obstruction (principal); N20.0 Calculus of kidney; Z87.442 Personal history of urinary calculi
CPT/HCPCS: 74177; 80053; 81003; 83690; 84703; 85025; 96361; 96374; 96375; 99285; J2270; J2405; J7030; Q9967

== ENCOUNTER 2022-10-16 17:03 | Inpatient (IN) | payer SELFPAY ==
--- NOTE | 2022-10-16 17:04 | W.ED.PSYCHS ---
HPI - Psych General: Chief Complaint: Psychiatric Symptoms Stated Complaint: SI Time Seen by Provider: 10/16/22 17:04 History of Present Illness: Mr. Lockhart is a 37-year-old lady with history of substance abuse and suicide attempts presented to the emergency department for evaluation of methamphetamine intoxication and suicidal thoughts. She reports smoking methamphetamine at approximately 1300 today. She has subsequently developed worsening suicidal thoughts. She does endorse hearing auditory hallucinations that say that nobody loves her and generally are saying mean things about her and these do occur outside of amphetamine use as well. She has tried overdosing in the past. She also says that she thinks about strangling herself with various cords that she sees around. No other specific changes in health, exacerbating, or alleviating factors identified. History of same: Yes Context: recent drug abuse Associated psychiatric symptoms: suicidal ideation Associated symptoms: Reports auditory hallucinations Review of Systems General: Reports: 10 or more systems reviewed and unremarkable except in HPI and below Psych: Reports: auditory hallucinations [facility] ED PFSH: Medical History Left ureteral stone Psychiatric care Physical Exam Const: COMMON NORMALS: alert GENERAL APPEARANCE: cooperative and well developed HENMT: COMMON NORMALS: normocephalic and atraumatic HEAD & SCALP: normocephalic and atraumatic Eye: COMMON NORMALS: conjunctivae normal CONJUNCTIVA: Yes conjunctivae normal SCLERA: sclerae normal Neck/C-Spine: COMMON NORMALS: supple GENERAL: Yes trachea midline Resp: COMMON NORMALS: normal respiratory effort EFFORT & INSPECTION: Yes able to speak in complete sentences Cardio: COMMON NORMALS: regular rate and regular rhythm RATE: regular rate RHYTHM: regular rhythm GI: COMMON NORMALS: Soft to palpation PALPATION: Yes Soft to palpation and No Tenderness to palpation present (GI) PERCUSSION: normal to percussion Extremity: GENERAL: Yes normal exam except as noted and No edema Neuro: COMMON NORMALS: moves all extremities SENSORIUM/ORIENTATION: Yes alert and No Orientation impaired Psych: COMMON NORMALS: mental status grossly normal and Normal thought process present THOUGHT PROCESS: Normal thought process present Course Vital Signs: Vital signs: Vital Signs Temperature 98.5 F 10/19/22 14:00 Pulse Rate 51 L 10/19/22 14:00 Respiratory Rate 17 10/19/22 14:00 Blood Pressure 112/69 10/19/22 14:00 Pulse Oximetry 96 10/19/22 14:00 Oxygen Delivery Me thod Room Air 10/19/22 14:00 MDM - Psych Medical Decision Making 37-year-old lady presenting with suicidal ideation in the context of substance abuse. Exam as above. Labs demonstrate no significant hematologic or metabolic abnormality. Minimal hypokalemia. TSH is low however normal free T4. Urine drug screen and toxic ingestions are negative with exception of positive amphetamine screen. hCG negative. Given physical exam and clinical history provided there is no indication for imaging at this time. Based on ED evaluation at this point there is no obvious condition that would preclude the patient from inpatient management of psychiatric concerns/symptoms. Discussed with psychiatry service and patient to be admitted to Neuropsych Unit. Medical Records I reviewed the patient's medical records. Lab Data I reviewed the patient's lab results. 10/16/22 18:04 10/16/22 18:04 Laboratory Results WBC 9.1 10^3/uL (4.0-10.0) 10/16/22 18:04 RBC 4.59 10^6/uL (4.1-5.3) 10/16/22 18:04 Hgb 13.0 g/dL (11.5-15.3) 10/16/22 18:04 Hct 40.5 % (37.0-47.0) 10/16/22 18:04 MCV 88.2 fl (81-99) 10/16/22 18:04 MCH 28.3 pg (28.0-34.0) 10/16/22 18:04 MCHC 32.1 g/dL (30.0-36.0) 10/16/22 18:04 RDW 12.7 % (12.1-15.1) 10/16/22 18:04 Plt Count 282 10^3/cmm (130-400) 10/16/22 18:04 MPV 9.7 fL (7.4-10.4) 10/16/22 18:04 Neut % (Auto) 67.6 % 10/16/22 18:04 Lymph % (Auto) 23.2 % 10/16/22 18:04 [place] % (Auto) 7.5 % 10/16/22 18:04 Eos % (Auto) 1.0 % 10/16/22 18:04 Baso % (Auto) 0.4 % 10/16/22 18:04 Neut # (Auto) 6.15 10^3/uL (1.8-7.7) 10/16/22 18:04 Lymph # (Auto) 2.1 10^3/uL (0.8-4.8) 10/16/22 18:04 [place] # (Auto) 0.7 10^3/uL (0.2-0.9) 10/16/22 18:04 Eos # (Auto) 0.1 10^3/uL (0.0-0.8) 10/16/22 18:04 Baso # (Auto) 0.0 10^3/uL (0.0-0.1) 10/16/22 18:04 Nucleated RBC % (auto) 0 % 10/16/22 18:04 Nucleated RBCs # 0.0 /100WBC 10/16/22 18:04 Sodium 141 mmol/L (136-145) 10/16/22 18:04 Potassium 3.4 mmol/L (3.5-5.1) L 10/16/22 18:04 Chloride 105 mmol/L (98-107) 10/16/22 18:04 Carbon Dioxide 26 mmol/L (22-29) 10/16/22 18:04 Anion Gap 13.4 (5-19) 10/16/22 18:04 BUN 14 mg/dL (6-20) 10/16/22 18:04 Creatinine 0.6 mg/dL (0.5-0.9) 10/16/22 18:04 GFR Calculation 111.3 mL/min (90-130) 10/16/22 18:04 Glucose 149 mg/dL (65-115) H 10/16/22 18:04 Calculated Osmolality 295 mOsm/kg (285-295) 10/16/22 18:04 Calcium 8.6 mg/dL (8.5-10.5) 10/16/22 18:04 Total Bilirubin 0.4 mg/dL (0.15-1.2) 10/16/22 18:04 AST 33 U/L (0-32) H 10/16/22 18:04 ALT 26 U/L (0-33) 10/16/22 18:04 Alkaline Phosphatase 70 U/L (35-105) 10/16/22 18:04 Total Protein 6.7 g/dL (6.6-8.7) 10/16/22 18:04 Albumin 3.8 g/dL (3.5-5.2) 10/16/22 18:04 Globulin 2.9 g/dL (1.3-4.6) 10/16/22 18:04 TSH 0.16 uIU/mL (0.27-4.20) L 10/16/22 18:04 Free T4 1.34 ng/dL (0.82-1.77) 10/16/22 18:04 HCG, Qual Negative (Negative) 10/16/22 17:46 Salicylates < 0.3 mg/dL (3-10) L 10/16/22 18:04 Urine Opiates Screen Negative ng/mL (Negative) 10/16/22 17:46 Acetaminophen < 5.0 ug/mL (10-30) L 10/16/22 18:04 Ur Barbiturates Screen Negative ng/mL (Negative) 10/16/22 17:46 Ur Phencyclidine Scrn Negative ng/mL (Negative) 10/16/22 17:46 Ur Amphetamines Screen Positive ng/mL (Negative) H 10/16/22 17:46 U Benzodiazepines Scrn Negative ng/mL (Negative) 10/16/22 17:46 Urine Cocaine Screen Negative ng/mL (Negative) 10/16/22 17:46 U Marijuana (THC) Screen Negative ng/mL (Negative) 10/16/22 17:46 Ethyl Alcohol < 10 mg/dL (0-10) 10/16/22 18:04 Discharge Plan Discharge Patient Disposition: Admitted As Inpatient Admit Provider: Deon Loza Clinical Impression: Suicidal ideation, Methamphetamine abuse Condition: Stable Discharge Diet: Usual diet Discharge Activity: Resume usual activity Coding Level of Care Code ED 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
[2022-10-16 17:15] VITALS: BP 152/87; PULSE 88; RESP 18; TEMP 36.8; O2SAT 97; BMI 42.9
[2022-10-16 17:26] VITALS: TEMP 36.8; O2SAT 98
--- NOTE | 2022-10-16 17:34 | PC.NURSE ---
Patient brought in by ems for SI without plan. No HI. Patient states, I feel like my boyfriend doesn't love me. And that makes me feel like I'm not worth it. I had the mineral economist take out the razor blades so that I can bring my bag in, I have tried in the past to take the blade over the top of my arm. Patient says shes attempted a couple weeks ago but no plan then. She has voices that tells her she is not worth nothing. So I did meth today at 1pm today then went to my PO.
[2022-10-16 17:41] VITALS: RESP 18; O2SAT 98
[2022-10-16 18:12] LABS: Basophils % 0.4 %; Eosinophils # 0.1 10^3/uL (0.0-0.8); Hematocrit 40.5 % (37.0-47.0); Lymphocytes # 2.1 10^3/uL (0.8-4.8); Lymphocytes % 23.2 %; Mean Corpuscular HGB Conc 32.1 g/dL (30.0-36.0); Mean Corpuscular Hemoglobin 28.3 pg (28.0-34.0); Mean Corpuscular Volume 88.2 fl (81-99); Mean Platelet Volume 9.7 fL (7.4-10.4); Monocytes # 0.7 10^3/uL (0.2-0.9); Monocytes % 7.5 %; Neutrophils # 6.15 10^3/uL (1.8-7.7); Neutrophils % 67.6 %; Nucleated Red Blood Cells % 0 %; Platelet Count 282 10^3/cmm (130-400); Red Blood Count 4.59 10^6/uL (4.1-5.3); Red Cell Distribution Width 12.7 % (12.1-15.1); White Blood Count 9.1 10^3/uL (4.0-10.0)
[2022-10-16 18:19] LABS: HCG Qualitative Urine. Negative (Negative)
[2022-10-16 18:23] LABS: Amphetamines Screen Urine Positive (Negative); Barbiturates Screen Urine Negative (Negative); Benzodiazepines Screen Urine Negative (Negative); Cocaine Screen Urine Negative (Negative); Opiate Screen Urine Negative (Negative); PCP Screen Urine Negative (Negative); THC Screen Urine Negative (Negative)
[2022-10-16 18:45] LABS: Acetaminophen < 5.0 ug/mL (10-30); Alanine Aminotransferase 26 U/L (0-33); Albumin Level 3.8 g/dL (3.5-5.2); Alkaline Phosphatase 70 U/L (35-105); Anion Gap 13.4 (5-19); Aspartate Amino Transferase 33 U/L (0-32); Blood Urea Nitrogen 14 mg/dL (6-20); Calcium 8.6 mg/dL (8.5-10.5); Carbon Dioxide 26 mmol/L (22-29); Chloride 105 mmol/L (98-107); Globulin 2.9 g/dL (1.3-4.6); Glomerular Filtration Rate 111.3 mL/min (90-130); Glucose 149 mg/dL (65-115); Osmolality Calculated 295 mOsm/kg (285-295); Potassium 3.4 mmol/L (3.5-5.1); Salicylate < 0.3 mg/dL (3-10); Sodium 141 mmol/L (136-145); Thyroid Stimulating Hormone 0.16 uIU/mL (0.27-4.20); Total Bilirubin 0.4 mg/dL (0.15-1.2); Total Protein 6.7 g/dL (6.6-8.7)
[2022-10-16 18:46] LABS: Alcohol Level < 10 mg/dL (0-10)
[2022-10-16 19:21] VITALS: BP 150/91; PULSE 80; RESP 17; TEMP 36.7; O2SAT 97
[2022-10-16] MEDS: trazodone 50 mg Tablet PO (20:55)
[2022-10-16] MEDS: calcium carbonate 500 mg Chew Tablet PO ×2 (20:55→23:57)
[2022-10-16 20:59] VITALS: BP 123/92; PULSE 59; RESP 18; TEMP 36.4; O2SAT 96
[2022-10-16 21:27] LABS: Free T4 Free Thyroxine 1.34 ng/dL (0.82-1.77)
[2022-10-16] MEDS: acetaminophen 325 mg Tablet 650 MG PO (23:45)
[2022-10-17 06:00] VITALS: BP 121/65; PULSE 66; RESP 15; O2SAT 97
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
[2022-10-17] MEDS: ibuprofen 800 mg tablet PO (09:29)
[2022-10-17] MEDS: pantoprazole DR 40 mg Tablet PO (09:29)
[2022-10-17] MEDS: nicotine 21 mg Patch 1 PATCH TRANSDERMA (09:30)
[2022-10-17 14:00] VITALS: BP 126/76; PULSE 52; RESP 16; TEMP 36.8; O2SAT 98
[2022-10-17] MEDS: citalopram 20 mg Tablet PO (15:50)
[2022-10-17] MEDS: OLANZapine 5 mg ODT PO (16:09)
[2022-10-17 19:40] VITALS: BP 117/56; PULSE 70; RESP 20; TEMP 36.4; O2SAT 97
[2022-10-17] MEDS: trazodone 50 mg Tablet PO (20:08)
[2022-10-17] MEDS: OLANZapine 5 mg TABLET 7.5 MG PO (20:08)
[2022-10-18 06:00] VITALS: BP 113/64; PULSE 56; RESP 18; TEMP 36.9; O2SAT 95
[2022-10-18] MEDS: pantoprazole DR 40 mg Tablet PO (08:55)
[2022-10-18] MEDS: citalopram 20 mg Tablet PO (08:55)
--- NOTE | 2022-10-18 09:12 | PC.NURSE ---
Patient calm and cooperative. During assessment, patient denied all. Patient verbalized understanding when informed that she if she had any issues she could talk to staff.
--- NOTE | 2022-10-18 12:20 | W.PM.NPUPNS ---
Subjective NPU Subjective: Maribell is a 36-year-old white female with methamphetamine abuse with a past history of bipolar disorder admitted with suicidal ideation currently restarted on Celexa and Zyprexa. Patient had reported an improvement in her mood. She had expressed desire to return back to work. She reported that her suicidal thoughts were less intense. She reported less feelings of hopelessness. She reported improved sleep with the increase in Zyprexa to 7.5 mg. She had reported some cravings for methamphetamine. She had reported having chronic problems with managing her sleep and often reported trauma based issues and agitation frequently. She had reported that her voices had been quieted for the first time in several weeks. She had continued to endorse nightmares regarding previous trauma nearly every night although she states it was better with these medications. Mental Status Exam MSE Comments: Patient is a casually dressed white female who appeared older than her stated age. She was alert and oriented to person place and time. There was no evidence of any abnormal involuntary motor movements tics or tremors. There was continued evidence of mild psychomotor retardation. Her speech was normal in regards to rate rhythm and prosody. Mood was described as all right. Her affect remained restricted and mood congruent. She denied any homicidal or suicidal ideation today. Her attention span appeared fair. She did not appear to be responding to internal stimuli. There was no evidence of any delusional thinking. She denied any auditory or visual hallucinations today. Her recent and remote memory were within normal limits. Her insight is limited. Her judgment is limited. Her impulse control was improving. . . Vitals/I&O/Wt Last Vital Signs Temp 98.4 F 10/18/22 06:00 Pulse 56 L 10/18/22 06:00 Resp 18 10/18/22 06:00 BP 113/64 10/18/22 06:00 Pulse Ox 95 10/18/22 06:00 O2 Del Method Room Air 10/18/22 06:00 10/17/22 10/18/22 10/18/22 22:59 06:59 14:59 Output Total 1000 / 1000 Balance -1000 / -1000 Weight last 48 hrs Weight 113.398 kg Data NPU 10/16/22 18:04 10/16/22 18:04 A&P Assessment and plan (1) Depressed mood: (2) Methamphetamine abuse: (3) Suicidal ideation: (4) PTSD (post-traumatic stress disorder): (5) Bipolar disorder: (6) Unspecified psychosis: Plan Patient is a 36-year-old white female with a past history of PTSD and history of bipolar disorder along with methamphetamine abuse admitted with depressed mood, auditory hallucinations and suicidal ideation with recent relapse with methamphetamine use. 1. We will gather collateral information. 2. Therapeutic observation 15-minute checks. 3. Continue celexa 20mg in am, and olanzapine 7.5mg at night. 4. Encourage individual, group and milieu therapy Involuntary Hold Information 96 Hour Hold: 96 Hour Involuntary Admission: No Attestations NPU Medical Necessity Statement*: Inpatient psychiatric hospitalization is medically necessary and deemed to be the clinically appropriate intervention at this time. We will monitor and initiate medications while making adjustments as indicated. Her likely length of stay is 2 to 3 days. Coding Level of Care Code Acute Code for g Fwd Diagnoses Depressed mood R45.89 Methamphetamine abuse F15.10 Suicidal ideation R45.851 PTSD (post-traumatic stress disorder) F43.10 Bipolar disorder F31.9 Unspecified psychosis F29
[2022-10-18 14:00] VITALS: BP 137/78; PULSE 53; RESP 16; TEMP 36.9; O2SAT 98
[2022-10-18 19:57] VITALS: BP 127/75; PULSE 67; RESP 16; O2SAT 97
[2022-10-18] MEDS: trazodone 50 mg Tablet PO (20:16)
[2022-10-18] MEDS: OLANZapine 5 mg TABLET 7.5 MG PO (20:16)
[2022-10-19 06:00] VITALS: BP 143/81; PULSE 47; RESP 16; O2SAT 95
[2022-10-19] MEDS: citalopram 20 mg Tablet PO (09:35)
[2022-10-19] MEDS: pantoprazole DR 40 mg Tablet PO (09:35)
--- NOTE | 2022-10-19 12:24 | W.PM.NPUPNS ---
Subjective NPU Subjective: Maribell is a 36-year-old white female with methamphetamine abuse with a past history of bipolar disorder admitted with suicidal ideation currently restarted on Celexa and Zyprexa. Patient had reported improved sleep. She had reported no cravings for methamphetamine at this time. She had reported that her depression had been better with the addition of Celexa. Patient had continued to report PTSD symptoms that had been present for several years. Patient reported problems with low energy and often complained of frequent mood swings. Mental Status Exam MSE Comments: Patient is a casually dressed white female who appeared older than her stated age. She was alert and oriented to person place and time. There was no evidence of any abnormal involuntary motor movements tics or tremors. There was continued evidence of mild psychomotor retardation. Her speech was normal in regards to rate rhythm and prosody. Mood was described as better. Her affect was less restricted today. She denied any homicidal or suicidal ideation today. Her attention span appeared fair. She did not appear to be responding to internal stimuli. There was no evidence of any delusional thinking. She denied any auditory or visual hallucinations today. Her recent and remote memory were within normal limits. Her insight is improving. Her judgment is fair. Her impulse control was improving. Vitals/I&O/Wt Last Vital Signs Temp 98.4 F 10/18/22 14:00 Pulse 47 L 10/19/22 06:00 Resp 16 10/19/22 06:00 BP 143/81 10/19/22 06:00 Pulse Ox 95 10/19/22 06:00 O2 Del Method Room Air 10/18/22 14:00 Weight last 48 hrs Weight 113.398 kg Data NPU 10/16/22 18:04 10/16/22 18:04 A&P Assessment and plan (1) Depressed mood: (2) Methamphetamine abuse: (3) Suicidal ideation: (4) PTSD (post-traumatic stress disorder): (5) Bipolar disorder: (6) Unspecified psychosis: Plan Patient is a 36-year-old white female with a past history of PTSD and history of bipolar disorder along with methamphetamine abuse admitted with depressed mood, auditory hallucinations and suicidal ideation with recent relapse with methamphetamine use. 1. We will gather collateral information. 2. Therapeutic observation 15-minute checks. 3. Continue celexa 20mg in am, and olanzapine 7.5mg at night. 4. Encourage individual, group and milieu therapy Involuntary Hold Information 96 Hour Hold: 96 Hour Involuntary Admission: No Attestations NPU Medical Necessity Statement*: Inpatient psychiatric hospitalization is medically necessary and deemed to be the clinically appropriate intervention at this time. We will monitor and initiate medications while making adjustments as indicated. Her likely length of stay is 1-2 days. Coding Level of Care Code Acute Code for g Fwd Diagnoses Depressed mood R45.89 Methamphetamine abuse F15.10 Suicidal ideation R45.851 PTSD (post-traumatic stress disorder) F43.10 Bipolar disorder F31.9 Unspecified psychosis F29
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
[2022-10-19 12:43] VITALS: BP 143/81; PULSE 47; RESP 16; TEMP 36.9; O2SAT 95
[2022-10-19 14:00] VITALS: BP 112/69; PULSE 51; RESP 17; TEMP 36.9; O2SAT 96
[2022-10-19] MEDS: ibuprofen 800 mg tablet PO (14:21)
[2022-10-19] MEDS: nicotine 2 mg Gum BUCCAL (14:21)
== END 2022-10-19 16:38 | disposition home or self-care (01) | DRG 897 ==
LOC: ER 18:48 → NP 19:04
PROVIDERS: Admitting Provider Psychiatry & Neurology Psychiatry; Emergency Provider Emergency Medicine; PCP Family Medicine; Visit Provider Psychiatry & Neurology Psychiatry
DX: F15.10 Other stimulant abuse, uncomplicated (principal); R45.851 Suicidal ideations; R44.0 Auditory hallucinations; F43.10 Post-traumatic stress disorder, unspecified; F31.9 Bipolar disorder, unspecified; R45.89 Other symptoms and signs involving emotional state; Z81.3 Family history of other psychoactive substance abuse and dependence; Z62.810 Personal history of physical and sexual abuse in childhood
CPT/HCPCS: 36415; 80053; 80306; 80307; 81025; 84439; 84443; 85025; 99238; 99285